=== PATIENT | male | born 1965 | race American Indian/Alaskan Native ===

== ENCOUNTER 2019-11-01 13:04 | Inpatient (IN) | payer OTHER ==
[2019-11-01] MEDS ORDERED: SODIUM CHLORIDE 0.9% 1000 ML 1,000 ML ONE (14:53)
[2019-11-01] MEDS ORDERED: SODIUM CHLORIDE 0.9% 1000 ML 1,000 ML IV ONE ×2 (14:53)
[2019-11-01] MEDS ORDERED: ONDANSETRON 4 MG/2 ML INJ ONE (14:53)
[2019-11-01] MEDS ORDERED: ONDANSETRON 4 MG/2 ML INJ IV ONE (14:53)
--- NOTE | 2019-11-01 15:17 | Emergency Department Report ---
HPI - General Chief Complaint: Dizziness Time Seen by Provider: 11/01/19 14:40 - HPI HPI: Room 25 The patient is a 54-year-old male present with a chief complaint of chills and weakness. The patient states his symptoms began 10/28/2019 with chills. Patient states he began to feel dizzy and weak. Patient states whenever he tried to drink something became nauseous but did not vomit. Patient states she has had "many diarrhea." Patient states she is had a sore throat for the past day or 2. Patient denies rhinorrhea or cough. Patient denies any other forms of pain. Patient admits to subjective fever. Patient denies any known sick contacts ED Past Medical Hx - Past Medical History Previous Medical History?: Yes Hx Hypertension: Yes Hx Diabetes: Yes Hx GERD: Yes - Surgical History Past Surgical History?: No - Family History Family history: no significant - Social History Smoking Status: Former Smoker (None x4 years) Substance Use Type: Alcohol (Occasional) - Medications Home Medications: Home Medications Medication Instructions Recorded Confirmed Last Taken Type Benzonatate [Tessalon Perles] 100 mg PO Q8HR PRN #30 capsule 12/14/16 Unknown Rx Diphenhydra/Phenyleph/Acetamin 1 pack PO PRN PRN 12/14/16 12/14/16 12/13/16 History [Theraflu Nt Severe Cld-Cgh Pkt] Fluticasone [Flonase] 1 spray NS QDAY #1 bottle 12/14/16 Unknown Rx Ketorolac [Toradol] 10 mg PO Q6H PRN #20 tablet 12/14/16 Unknown Rx guaiFENesin DM [Robitussin Dm] 2 tbsp PO Q4-6H PRN 12/14/16 12/14/16 12/13/16 History amLODIPine 5 mg PO DAILY #30 tab 12/16/16 Unknown Rx levoFLOXacin [Levaquin TAB] 500 mg PO QDAY #7 tablet 12/16/16 Unknown Rx ED Review of Systems ROS: Stated complaint: WEAK/DIZZY Other details as noted in HPI Constitutional: chills, fever (Subjective), weakness Eyes: denies: eye pain ENT: denies: other (No rhinorrhea) Respiratory: denies: cough Cardiovascular: denies: chest pain Endocrine: no symptoms reported Gastrointestinal: nausea, diarrhea. denies: abdominal pain, vomiting Genitourinary: denies: dysuria Musculoskeletal: denies: back pain Neurological: denies: headache Physical Exam - Physical Exam Vital Signs: Vital Signs 11/01/19 13:04 Temperature 100.1 F H Pulse Rate 126 H Respiratory 20 Rate Blood Pressure 131/76 [Right] O2 Sat by Pulse 89 Oximetry Physical Exam: GENERAL: The patient is well-developed well-nourished male lying on stretcher not appearing to be in acute distress. [] HEENT: Normocephalic. Atraumatic. Extraocular motions are intact. Patient has dry appearing lips NECK: Supple. Trachea midline CHEST/LUNGS: Clear to auscultation. There is no respiratory distress noted. HEART/CARDIOVASCULAR: Regular. There is tachycardia. There is no gallop rub or murmur. ABDOMEN: Abdomen is soft, nontender. Patient has normal bowel sounds. There is no abdominal distention. SKIN: There is no rash. There is no edema. There is no diaphoresis. NEURO: The patient is awake, alert, and oriented. The patient is cooperative. The patient has normal speech MUSCULOSKELETAL: There is no evidence of acute injury. ED Course Vital Signs 11/01/19 13:04 Temperature 100.1 F H Pulse Rate 126 H Respiratory 20 Rate Blood Pressure 131/76 [Right] O2 Sat by Pulse 89 Oximetry - Reevaluation(s) Reevaluation #1: 11/01/19 17:05 Patient states he feels better however SPO2 70% on room air. ABG ordered. Patient will be placed on supplemental O2. Chest x-ray ordered ED Medical Decision Making - Lab Data Result diagrams: 11/01/19 15:55 11/01/19 15:55 Laboratory Tests 11/01/19 11/01/19 11/01/19 15:55 15:55 15:55 WBC 7.2 RBC 4.99 Hgb 15.4 H Hct 45.6 MCV 91 MCH 31 MCHC 34 RDW 13.1 L Plt Count 123 L Lymph % (Auto) 10.1 L [place] % (Auto) 6.3 Eos % (Auto) 0.0 Baso % (Auto) 0.2 Lymph # 0.7 L [place] # 0.5 Eos # 0.0 Baso # 0.0 Seg Neutrophils % 83.4 H Seg Neutrophils # 6.0 PT 13.6 INR 1.03 APTT 24.2 ABG pH ABG pCO2 ABG pO2 ABG HCO3 ABG O2 Saturation ABG O2 Content ABG Base Excess ABG Hemoglobin ABG Carboxyhemoglobin ABG Methemoglobin Oxyhemoglobin FiO2 Sodium 131 L Potassium 4.5 Chloride 92.7 L Carbon Dioxide 19 L Anion Gap 24 BUN 25 H Creatinine 1.0 Estimated GFR > 60 BUN/Creatinine Ratio 25 Glucose 414 H Calcium 8.6 Total Bilirubin 0.70 AST 40 ALT 21 Alkaline Phosphatase 90 Total Creatine Kinase 161 CK-MB (CK-2) < 1.0 CK-MB (CK-2) Rel Index 0.6 Total Protein 7.9 Albumin 3.6 L Albumin/Globulin Ratio 0.8 Lipase TSH Free T4 Urine Color Urine Turbidity Urine pH Ur Specific [place] Urine Protein Urine Glucose (UA) Urine Ketones Urine Blood Urine Nitrite Ur Reducing Substances Urine Bilirubin Urine Ictotest Urine Urobilinogen Ur Leukocyte Esterase Urine WBC (Auto) Urine RBC (Auto) Urine Mucus Influenza A (Rapid) Influenza B (Rapid) 11/01/19 11/01/19 11/01/19 15:55 15:55 17:02 WBC RBC Hgb Hct MCV MCH MCHC RDW Plt Count Lymph % (Auto) [place] % (Auto) Eos % (Auto) Baso % (Auto) Lymph # [place] # Eos # Baso # Seg Neutrophils % Seg Neutrophils # PT INR APTT ABG pH ABG pCO2 ABG pO2 ABG HCO3 ABG O2 Saturation ABG O2 Content ABG Base Excess ABG Hemoglobin ABG Carboxyhemoglobin ABG Methemoglobin Oxyhemoglobin FiO2 Sodium Potassium Chloride Carbon Dioxide Anion Gap BUN Creatinine Estimated GFR BUN/Creatinine Ratio Glucose Calcium Total Bilirubin AST ALT Alkaline Phosphatase Total Creatine Kinase CK-MB (CK-2) CK-MB (CK-2) Rel Index Total Protein Albumin Albumin/Globulin Ratio Lipase 28 TSH 0.736 Free T4 1.18 Urine Color Yellow Urine Turbidity Clear Urine pH 5.0 Ur Specific [place] 1.027 Urine Protein 30 mg/dl Urine Glucose (UA) >=500 Urine Ketones 20 Urine Blood Neg Urine Nitrite Neg Ur Reducing Substances Not Reportable Urine Bilirubin Neg Urine Ictotest Not Reportable Urine Urobilinogen < 2.0 Ur Leukocyte Esterase Neg Urine WBC (Auto) 1.0 Urine RBC (Auto) 3.0 Urine Mucus Few Influenza A (Rapid) Influenza B (Rapid) 11/01/19 11/01/19 17:23 17:25 WBC RBC Hgb Hct MCV MCH MCHC RDW Plt Count Lymph % (Auto) [place] % (Auto) Eos % (Auto) Baso % (Auto) Lymph # [place] # Eos # Baso # Seg Neutrophils % Seg Neutrophils # PT INR APTT ABG pH 7.397 ABG pCO2 35.3 ABG pO2 47.1 L ABG HCO3 21.3 ABG O2 Saturation 82.3 L ABG O2 Content 17.6 ABG Base Excess -2.8 L ABG Hemoglobin 15.7 ABG Carboxyhemoglobin 2.1 ABG Methemoglobin 0.8 Oxyhemoglobin 79.9 L FiO2 21 Sodium Potassium Chloride Carbon Dioxide Anion Gap BUN Creatinine Estimated GFR BUN/Creatinine Ratio Glucose Calcium Total Bilirubin AST ALT Alkaline Phosphatase Total Creatine Kinase CK-MB (CK-2) CK-MB (CK-2) Rel Index Total Protein Albumin Albumin/Globulin Ratio Lipase TSH Free T4 Urine Color Urine Turbidity Urine pH Ur Specific [place] Urine Protein Urine Glucose (UA) Urine Ketones Urine Blood Urine Nitrite Ur Reducing Substances Urine Bilirubin Urine Ictotest Urine Urobilinogen Ur Leukocyte Esterase Urine WBC (Auto) Urine RBC (Auto) Urine Mucus Influenza A (Rapid) Negative Influenza B (Rapid) Negative - EKG Data -: EKG Interpreted by Me EKG shows normal: sinus rhythm Rate: tachycardia (119 bpm) - EKG Data When compared to previous EKG there are: previous EKG unavailable Interpretation: other (No ischemic changes seen) - Radiology Data Radiology results: report reviewed (Chest x-ray), image reviewed (Chest x-ray) interpreted by me: Chest [id number] hazy appearance, atelectasis. No pneumothorax Findings [address] [address] XRay Report Signed Patient: OMKAR VIVAR MR#: [id number] : 1965 Acct:[id number] Age/Sex: 54 / M ADM Date: 11/01/19 Loc: ED Attending Dr: Ordering Physician: LE ESCOBAR MD Date of Service: 11/01/19 Procedure(s): XR chest 1V ap Accession Number(s): [id number] cc: LE ESCOBAR MD Fluoro Time In Minutes: CHEST 1 VIEW INDICATION: Hypoxia COMPARISON: 12/14/2016 FINDINGS: Support devices: None Heart: Normal and unchanged Lungs/Pleura: There appears to be slight pleural scarring in the right midlung laterally, and mild bibasilar parenchymal densities are most likely atelectasis. I see no convincing evidence of acute disease. The large right perihilar mass density on the previous exam is no longer apparent. IMPRESSION: 1. Chronic appearing changes on the right, with mild bibasilar atelectasis, but no definite acute disease. Signer Name: John Elliott MD Signed: 11/01/2019 5:48 PM Workstation Name: [id number] Transcribed By: TM Dictated By: John Elliott MD Electronically Authenticated By: John Elliott MD Signed Date/Time: 11/01/191747 DD/ 43 TD/TT: - Medical Decision Making Covid 19 PUI form submitted - Differential Diagnosis Gastroenteritis, pancreatitis, dehydration, pharyngitis Critical care attestation.: If time is entered above; I have spent that time in minutes in the direct care of this critically ill patient, excluding procedure time. ED Disposition Clinical Impression: Pneumonia, Tachycardia, Dehydration Disposition: DC-09 OP ADMIT IP TO THIS HOSP Is pt being admited?: Yes Does the pt Need Aspirin: No Condition: Stable Instructions: Bacterial Pneumonia (ED) Time of Disposition: 18:07 (Hospitalist paged (Dr Spear))
[2019-11-01] MEDS ORDERED: ACETAMINOPHEN 500 MG TAB PO ONE (15:22)
[2019-11-01 16:25] LABS: Basophils % (Auto) 0.2 % (0.0-1.8); Hematocrit 45.6 % (35.5-45.6); Hemoglobin 15.4 gm/dl (11.8-15.2); Lymphocytes # (Auto) 0.7 K/mm3 (1.2-5.4); Lymphocytes % (Auto) 10.1 % (13.4-35.0); Mean Corpuscular HGB Conc 34 % (32-34); Mean Corpuscular Volume 91 fl (84-94); Monocytes # (Auto) 0.5 K/mm3 (0.0-0.8); Monocytes % (Auto) 6.3 % (0.0-7.3); Platelet Count 123 K/mm3 (140-440); Red Blood Count 4.99 M/mm3 (3.65-5.03); Red Cell Distribution Width 13.1 % (13.2-15.2)
[2019-11-01 16:36] LABS: INR 1.03 (0.87-1.13); Partial Thromboplastin Time 24.2 Sec. (24.2-36.6)
[2019-11-01 16:37] LABS: Alanine Aminotransferase 21 units/L (7-56); Albumin 3.6 g/dL (3.9-5); BUN/Creatinine Ratio 25; Blood Urea Nitrogen 25 mg/dL (9-20); Calcium 8.6 mg/dL (8.4-10.2); Hemolysis Index 5
[2019-11-01 16:46] LABS: Creatine Kinase MB < 1.0 ng/mL (0.0-4.0)
[2019-11-01 16:54] LABS: Free T4 (Free Thyroxine) 1.18 ng/dL (0.76-1.46)
[2019-11-01 17:14] LABS: Mucus,Urine FEW /HPF
[2019-11-01 17:21] LABS: Bilirubin,Urine NEG (Negative); Blood,Urine NEG (Negative); Color,Urine Yellow (Yellow); Urobilinogen,Urine < 2.0 mg/dL (<2.0)
[2019-11-01 17:52] LABS: ABG Base Excess -2.8 mmol/L (-2.0-3.0); ABG HCO3 21.3 mmol/L (20.0-26.0); ABG Methemoglobin 0.8 % (0.0-1.5); ABG Oxygen Saturation 82.3 % (95.0-99.0); ABG PCO2 35.3 mm Hg; ABG PH 7.397 pH Units (7.350-7.450); ABG PO2 47.1 mm Hg (80.0-90.0)
--- NOTE | 2019-11-01 17:53 | XRay Report ---
CHEST 1 VIEW INDICATION: Hypoxia COMPARISON: 12/14/2016 FINDINGS: Support devices: None Heart: Normal and unchanged Lungs/Pleura: There appears to be slight pleural scarring in the right midlung laterally, and mild bi basilar parenchymal densities are most likely atelectasis. I see no convincing evidence of acute dise ase. The large right perihilar mass density on the previous exam is no longer apparent. IMPRESSION: 1. Chronic appearing changes on the right, with mild bibasilar atelectasis, but no definite acute dis ease. Signer Name: John Elliott MD Signed: 11/01/2019 5:48 PM Workstation Name: [id number]
[2019-11-01] MEDS ORDERED: cefTRIAXone/NS 1 GM/50 ML 1 GM/50 ML BAG IV ONE (17:58)
[2019-11-01] MEDS ORDERED: AZITHROMYCIN 500 MG in SODIUM CHLORIDE 0.9% 250ML 250 ML IV ONE (18:15)
[2019-11-01] MEDS ORDERED: PHENOL 1.4% 177 ML BOTTLE MM PRN (23:05)
--- NOTE | 2019-11-01 23:15 | History and Physical Report ---
History of Present Illness Date of admission: 11/01/19 18:09 History of present illness: 54-year-old man with a history of hypertension, diabetes, GERD comes emergency room for evaluation. Stated that over the last 4 days he has been experiencing nausea, diarrhea. States he does not have the diarrhea every day, unable to quantify how many number of stools he has per day. Complains of generalized weakness, chills. No cough, recent travel or sick contacts. In the emergency room he was found to be hypoxic with 72% on room air. Patient will be admitted for further evaluation of SIRS, possible coronavirus infection Review Of Systems: Constitutional: no weight loss, Ears, eyes, nose, mouth and throat: no nasal congestion, no nasal discharge, no sinus pressure, blurry vision, diplopia Neck: No neck pain or rigidity. Cardiovascular: No palpitations, chest pain Respiratory: No shortness of breath, cough Gastrointestinal: No hematochezia Genitourinary : no dysuria, frequency Musculoskeletal: no muscle ache , joint pain Integumentary: no rash, no pruritis Neurological: no parathesias, focal weakness Endocrine: no cold or heat intolerance, no polyuria or polydipsia Hematologic/Lymphatic: no easy bruising, no easy bleeding, no gland swelling Allergic/Immunologic: no urticaria, no angioedema. PAST MEDICAL HISTORY: hypertension, diabetes, GERD PAST SURGICAL HISTORY: None SOCIAL HISTORY: Denies alcohol, tobacco, drugs FAMILY HISTORY: Hypertension Medications and Allergies Allergies Allergy/AdvReac Type Severity Reaction Status Date / Time No Known Allergies Allergy Verified 11/01/19 13:30 Home Medications Medication Instructions Recorded Confirmed Last Taken Type amLODIPine 10 mg PO DAILY 11/01/19 11/01/19 Unknown History Active Meds: Active Medications Phenol (Chloraseptic) 1 spray MM PRN PRN PRN Reason: Sore Throat Exam - Physical Exam Narrative exam: Gen. appearance: Patient lying in bed, no apparent distress HEENT: Normocephalic, atraumatic, pupils equally round and reactive to light, extraocular movement intact, and no sclericterus,. No JVD or thyromegaly or nodule,neck supple, no carotid bruit ,mucous membranes moist, no exudate or erythema Heart: S1, S2, regular rate and rhythm Lungs: Clear bilaterally, breathing comfortable Abdomen: Positive bowel sounds, nontender, nondistended, no organomegaly Extremity: no edema, cyanosis, clubbing Skin: No rash, nodules, warm, dry Neuro: Cranial nerves II to XII intact, speech is fluent, moves extremities, sensory intact - Constitutional Vitals: Temp Pulse Resp BP Pulse Ox 98.1 F 114 H 20 135/89 92 11/01/19 20:45 11/01/19 22:22 11/01/19 20:45 11/01/19 21:40 11/01/19 21:40 Results - Labs CBC & Chem 7: 11/02/19 04:58 11/02/19 04:58 Labs: Abnormal lab results 11/01/19 11/01/19 11/01/19 Range/Units 15:55 15:55 17:25 Hgb 15.4 H (11.8-15.2) gm/dl RDW 13.1 L (13.2-15.2) % Plt Count 123 L (140-440) K/mm3 Lymph % (Auto) 10.1 L (13.4-35.0) % Lymph # 0.7 L (1.2-5.4) K/mm3 Seg Neutrophils % 83.4 H (40.0-70.0) % ABG pO2 47.1 L (80.0-90.0) mm Hg ABG O2 Saturation 82.3 L (95.0-99.0) % ABG Base Excess -2.8 L (-2.0-3.0) mmol/L Oxyhemoglobin 79.9 L (95.0-99.0) % Sodium 131 L (137-145) mmol/L Chloride 92.7 L (98-107) mmol/L Carbon Dioxide 19 L (22-30) mmol/L BUN 25 H (9-20) mg/dL Glucose 414 H (75-100) mg/dL Albumin 3.6 L (3.9-5) g/dL - Imaging and Cardiology Chest x-ray: report reviewed Assessment and Plan Assessment sirs, possible coronavirus Start IV fluids, supportive care Status post Rocephin, azithromycin ER, hold further antibiotic Consult infectious disease, follow cultures COVID screen was done, placed on droplet, contact precautions Diarrhea Check stool for culture, C. difficile Hypertension, now normotensive Continue to monitor Diabetes Check fingersticks, start sliding scale Thrombocytopenia, monitor DVT prophylaxis
[2019-11-02] MEDS ORDERED: DEXTROSE 50% IN WATER (25GM) 50 ML SYRINGE IV PRN (00:25)
[2019-11-02] MEDS ORDERED: ONDANSETRON 4 MG/2 ML INJ IV PRN (00:25)
[2019-11-02] MEDS ORDERED: SODIUM CHLORIDE 0.9% 1000 ML 1,000 ML IV SCH ×2 (00:30→01:30)
[2019-11-02] MEDS: ACETAMINOPHEN 325 MG TAB PO PRN ×2 (02:37→23:41)
[2019-11-02 05:30] LABS: Basophils % (Auto) 0.5 % (0.0-1.8); Eosinophils % (Auto) 0.1 % (0.0-4.3); Hematocrit 44.2 % (35.5-45.6); Hemoglobin 14.7 gm/dl (11.8-15.2); Lymphocytes # (Auto) 0.8 K/mm3 (1.2-5.4); Lymphocytes % (Auto) 12.5 % (13.4-35.0); Mean Corpuscular HGB Conc 33 % (32-34); Mean Corpuscular Volume 92 fl (84-94); Monocytes # (Auto) 0.4 K/mm3 (0.0-0.8); Monocytes % (Auto) 6.3 % (0.0-7.3); Platelet Count 116 K/mm3 (140-440); Red Cell Distribution Width 13.5 % (13.2-15.2)
[2019-11-02 05:49] LABS: BUN/Creatinine Ratio 22; Blood Urea Nitrogen 20 mg/dL (9-20); Calcium 8.3 mg/dL (8.4-10.2); Hemolysis Index 6
[2019-11-02] MEDS: INSULIN LISPRO 100 UNIT/ML SUB-Q SCH ×4 (09:48→23:41)
--- NOTE | 2019-11-02 11:36 | Progress Note ---
Assessment and Plan Assessment and plan: sirs, possible coronavirus Start IV fluids, supportive care Status post Rocephin, azithromycin ER, hold further antibiotic Consult infectious disease, follow cultures To r/o COVID COVID screen was done, placed on droplet, contact precautions Acute resp failure On supplemental Oxygen Diarrhea Check stool for culture, C. difficile Hypertension, now normotensive Continue to monitor Diabetes Check fingersticks, start sliding scale Thrombocytopenia, monitor DVT prophylaxis Full code status History Interval history: shortness of breath diarrhea Fever Hospitalist Physical - Physical exam Narrative exam: GEN: Not in acute distress, lying in bed,obese HEENT: Normocephalic, atraumatic, Neck: supple, No JVD Lungs: Clear to auscultation, no crackles, heart;S1 and S2 reg, no murmurs, rubs or gallop Abd:soft, non tender, non distended, normal bowel sounds Ext: No edema, no clubbing, no cyanosis, Neuro: Awake, alert, oriented x 3, no focal signs - Constitutional Vitals: Temp Pulse Resp BP Pulse Ox 99.0 F 110 H 21 136/90 90 11/02/19 04:00 11/02/19 06:00 11/02/19 03:50 11/01/19 21:45 11/02/19 08:46 Results - Labs CBC & Chem 7: 11/02/19 04:58 11/02/19 04:58 Labs: Laboratory Last Values WBC 6.6 K/mm3 (4.5-11.0) 11/02/19 04:58 RBC 4.80 M/mm3 (3.65-5.03) 11/02/19 04:58 Hgb 14.7 gm/dl (11.8-15.2) 11/02/19 04:58 Hct 44.2 % (35.5-45.6) 11/02/19 04:58 MCV 92 fl (84-94) 11/02/19 04:58 MCH 31 pg (28-32) 11/02/19 04:58 MCHC 33 % (32-34) 11/02/19 04:58 RDW 13.5 % (13.2-15.2) 11/02/19 04:58 Plt Count 116 K/mm3 (140-440) L 11/02/19 04:58 Lymph % (Auto) 12.5 % (13.4-35.0) L 11/02/19 04:58 [place] % (Auto) 6.3 % (0.0-7.3) 11/02/19 04:58 Eos % (Auto) 0.1 % (0.0-4.3) 11/02/19 04:58 Baso % (Auto) 0.5 % (0.0-1.8) 11/02/19 04:58 Lymph # 0.8 K/mm3 (1.2-5.4) L 11/02/19 04:58 [place] # 0.4 K/mm3 (0.0-0.8) 11/02/19 04:58 Eos # 0.0 K/mm3 (0.0-0.4) 11/02/19 04:58 Baso # 0.0 K/mm3 (0.0-0.1) 11/02/19 04:58 Seg Neutrophils % 80.6 % (40.0-70.0) H 11/02/19 04:58 Seg Neutrophils # 5.3 K/mm3 (1.8-7.7) 11/02/19 04:58 PT 13.6 Sec. (12.2-14.9) 11/01/19 15:55 INR 1.03 (0.87-1.13) 11/01/19 15:55 APTT 24.2 Sec. (24.2-36.6) 11/01/19 15:55 ABG pH 7.397 pH Units (7.350-7.450) 11/01/19 17:25 ABG pCO2 35.3 mm Hg 11/01/19 17:25 ABG pO2 47.1 mm Hg (80.0-90.0) L 11/01/19 17:25 ABG HCO3 21.3 mmol/L (20.0-26.0) 11/01/19 17:25 ABG O2 Saturation 82.3 % (95.0-99.0) L 11/01/19 17:25 ABG O2 Content 17.6 (0.0-44) 11/01/19 17:25 ABG Base Excess -2.8 mmol/L (-2.0-3.0) L 11/01/19 17:25 ABG Hemoglobin 15.7 gm/dl (14.0-18.0) 11/01/19 17:25 ABG Carboxyhemoglobin 2.1 % (0.0-5.0) 11/01/19 17:25 ABG Methemoglobin 0.8 % (0.0-1.5) 11/01/19 17:25 Oxyhemoglobin 79.9 % (95.0-99.0) L 11/01/19 17:25 FiO2 21 % 11/01/19 17:25 Sodium 137 mmol/L (137-145) 11/02/19 04:58 Potassium 4.1 mmol/L (3.6-5.0) 11/02/19 04:58 Chloride 97.9 mmol/L (98-107) L 11/02/19 04:58 Carbon Dioxide 23 mmol/L (22-30) 11/02/19 04:58 Anion Gap 20 mmol/L 11/02/19 04:58 BUN 20 mg/dL (9-20) 11/02/19 04:58 Creatinine 0.9 mg/dL (0.8-1.5) 11/02/19 04:58 Estimated GFR > 60 ml/min 11/02/19 04:58 BUN/Creatinine Ratio 22 % 11/02/19 04:58 Glucose 313 mg/dL (75-100) H 11/02/19 04:58 Calcium 8.3 mg/dL (8.4-10.2) L 11/02/19 04:58 Total Bilirubin 0.70 mg/dL (0.1-1.2) 11/01/19 15:55 AST 40 units/L (5-40) 11/01/19 15:55 ALT 21 units/L (7-56) 11/01/19 15:55 Alkaline Phosphatase 90 units/L (35-129) 11/01/19 15:55 Total Creatine Kinase 161 units/L (55-170) 11/01/19 15:55 CK-MB (CK-2) < 1.0 ng/mL (0.0-4.0) 11/01/19 15:55 CK-MB (CK-2) Rel Index 0.6 (0-4) 11/01/19 15:55 Total Protein 7.9 g/dL (6.3-8.2) 11/01/19 15:55 Albumin 3.6 g/dL (3.9-5) L 11/01/19 15:55 Albumin/Globulin Ratio 0.8 % 11/01/19 15:55 Lipase 28 units/L (13-60) 11/01/19 15:55 TSH 0.736 mlU/mL (0.270-4.200) 11/01/19 15:55 Free T4 1.18 ng/dL (0.76-1.46) 11/01/19 15:55 Urine Color Yellow (Yellow) 11/01/19 17:02 Urine Turbidity Clear (Clear) 11/01/19 17:02 Urine pH 5.0 (5.0-7.0) 11/01/19 17:02 Ur Specific [place] 1.027 (1.003-1.030) 11/01/19 17:02 Urine Protein 30 mg/dl mg/dL (Negative) 11/01/19 17:02 Urine Glucose (UA) >=500 mg/dL (Negative) 11/01/19 17:02 Urine Ketones 20 mg/dL (Negative) 11/01/19 17:02 Urine Blood Neg (Negative) 11/01/19 17:02 Urine Nitrite Neg (Negative) 11/01/19 17:02 Ur Reducing Substances Not Reportable 11/01/19 17:02 Urine Bilirubin Neg (Negative) 11/01/19 17:02 Urine Ictotest Not Reportable 11/01/19 17:02 Urine Urobilinogen < 2.0 mg/dL (<2.0) 11/01/19 17:02 Ur Leukocyte Esterase Neg (Negative) 11/01/19 17:02 Urine WBC (Auto) 1.0 /HPF (0.0-6.0) 11/01/19 17:02 Urine RBC (Auto) 3.0 /HPF (0.0-6.0) 11/01/19 17:02 Urine Mucus Few /HPF 11/01/19 17:02 Influenza A (Rapid) Negative (Negative) 11/01/19 17:23 Influenza B (Rapid) Negative (Negative) 11/01/19 17:23 Microbiology: Microbiology 11/01/19 18:26 Peripheral/Venous Blood Culture - Preliminary Culture in Progress 11/01/19 18:26 Peripheral/Venous Blood Culture - Preliminary Culture in Progress B[place]/IV: Voiding Method Urinal IV Catheter Type [Left Hand] INT / Saline Lock Active Medications - Current Medications Current Medications: Generic Name Dose Route Start Last Admin Trade Name Freq PRN Reason Stop Dose Admin Acetaminophen 650 mg 11/02/19 00:25 11/02/19 02:37 Tylenol PO 650 mg Q4H PRN Administration Pain MILD(1-3)/Fever >100.5/CARDENAS Dextrose 0 ml 11/02/19 00:25 D50w (25gm) Syringe IV Q30MIN PRN Hypoglycemia Protocol Sodium Chloride 1,000 mls @ 75 mls/hr 11/02/19 00:30 11/02/19 02:37 Nacl 0.9% 1000 Ml IV 75 mls/hr DIRECT DUTCH Administration Insulin Human Lispro 0 unit 11/02/19 07:30 11/02/19 09:48 Humalog SUB-Q Not Given ACHS DUTCH Protocol Ondansetron HCl 4 mg 11/02/19 00:25 Zofran IV Q8H PRN Nausea And Vomiting Phenol 1 spray 11/01/19 23:05 11/02/19 02:37 Chloraseptic MM 1 spray PRN PRN Administration Sore Throat Sodium Chloride 10 ml 11/02/19 10:00 11/02/19 09:48 Sodium Chloride Flush Syringe 10 Ml IV 10 ml BID DUTCH Administration Sodium Chloride 10 ml 11/02/19 00:25 Sodium Chloride Flush Syringe 10 Ml IV PRN PRN LINE FLUSH
--- NOTE | 2019-11-02 16:54 | Consultation ---
History of Present Illness - Reason for Consult Consult date: 11/02/19 - History of Present Illness 54-year-old man past medical history of hypertension, diabetes, GERD admitted to the hospital with complaints of nausea and diarrhea. He notes the symptoms began approximately 4 days prior to admission. He also complains of generalized weakness and chills. He was found to be hypoxic on presentation to the hospital and was admitted to the IMCU. He denies shortness of breath or cough. He was admitted as a concern for COVID-19. Afebrile with a normal white count and a lymphopenia. Currently receiving ceftriaxone and azithromycin. Blood cultures are currently pending. Imaging personally reviewed: Chest x-ray: Mild bibasilar atelectasis. Review of Systems: Bold if positive, otherwise negative General: fevers, chills, rigors HEENT: visual disturbance, diplopia, eye pain Respiratory: cough, sputum, hemoptysis, shortness of breath Cardiovascular: chest pain, syncope Gastrointestinal: nausea, vomiting, diarrhea, abdominal pain Genitourinary: dysuria, hematuria, flank pain Musculoskeletal: neck pain, back pain, joint pain, edema Neurologic: headaches, seizures Hematologic: easy bruising or bleeding Endocrine: night sweats, acute weight loss Skin: rash, jaundice, redness Psychiatric: suicidal, homicidal ideation Past History Past Medical History: diabetes Social history: lives with family Family history: no significant family history Medications and Allergies Allergies Allergy/AdvReac Type Severity Reaction Status Date / Time No Known Allergies Allergy Verified 11/01/19 13:30 Home Medications Medication Instructions Recorded Confirmed Last Taken Type amLODIPine 10 mg PO DAILY 11/01/19 11/01/19 Unknown History Active Meds: Active Medications Acetaminophen (Tylenol) 650 mg PO Q4H PRN PRN Reason: Pain MILD(1-3)/Fever >100.5/CARDENAS Last Admin: 11/02/19 02:37 Dose: 650 mg Documented by: Dextrose (D50w (25gm) Syringe) 0 ml IV Q30MIN PRN; Protocol PRN Reason: Hypoglycemia Sodium Chloride (Nacl 0.9% 1000 Ml) 1,000 mls @ 75 mls/hr IV DIRECT DUTCH Last Admin: 11/02/19 02:37 Dose: 75 mls/hr Documented by: Insulin Human Lispro (Humalog) 0 unit SUB-Q ACHS DUTCH; Protocol Last Admin: 11/02/19 12:07 Dose: Not Given Documented by: Ondansetron HCl (Zofran) 4 mg IV Q8H PRN PRN Reason: Nausea And Vomiting Phenol (Chloraseptic) 1 spray MM PRN PRN PRN Reason: Sore Throat Last Admin: 11/02/19 02:37 Dose: 1 spray Documented by: Sodium Chloride (Sodium Chloride Flush Syringe 10 Ml) 10 ml IV BID [facility] Last Admin: 11/02/19 09:48 Dose: 10 ml Documented by: Sodium Chloride (Sodium Chloride Flush Syringe 10 Ml) 10 ml IV PRN PRN PRN Reason: LINE FLUSH Physical Examination - Physical Exam Narrative exam: Physical Exam: Constitutional: Alert, cooperative. No acute distress Head, Ears, Nose: Normocephalic, atraumatic. External ears, nose normal Eyes: Conjunctivae/corneas clear. No icterus. No ptosis. Neck: Supple, no meningeal signs Oral: dentition fair, no thrush Cardiovascular: S1, S2 normal. Respiratory: Bilaterally diminished breath sounds GI: Soft, non-tender; bowel sounds normal. No peritoneal signs. Musculoskeletal: No pedal edema, no cyanosis. Skin: No rash or abscess Hem/Lymphatic: No palpable cervical or supraclavicular nodes. No lymphangitis Psych: Mood ok. Affect normal Neurological: Awake, alert, oriented. No gross abnormality - Constitutional Vitals: Vital Signs Temp Pulse Resp BP Pulse Ox 99.0 F 114 H 22 157/85 88 11/02/19 04:00 11/02/19 15:50 11/02/19 15:00 11/02/19 15:50 11/02/19 15:50 Temperature -Last 24 Hours Temperature 99.0 F Temperature 98.9 F Temperature 98.1 F Temperature 98.9 F Results - Labs CBC & Chem 7: 11/02/19 04:58 11/02/19 04:58 Labs: Abnormal lab results 11/01/19 11/02/19 11/02/19 Range/Units 17:25 04:58 04:58 Plt Count 116 L (140-440) K/mm3 Lymph % (Auto) 12.5 L (13.4-35.0) % Lymph # 0.8 L (1.2-5.4) K/mm3 Seg Neutrophils % 80.6 H (40.0-70.0) % ABG pO2 47.1 L (80.0-90.0) mm Hg ABG O2 Saturation 82.3 L (95.0-99.0) % ABG Base Excess -2.8 L (-2.0-3.0) mmol/L Oxyhemoglobin 79.9 L (95.0-99.0) % Chloride 97.9 L (98-107) mmol/L Glucose 313 H (75-100) mg/dL Calcium 8.3 L (8.4-10.2) mg/dL Assessment and Plan Cultures: Blood culture 11/01/2019 no growth to date A/P: 54-year-old man past medical history of hypertension, diabetes, GERD admitted with nausea and vomiting. #COVID-19 rule out: Patient with nausea and vomiting, sometimes COVID-19 can present with an abdominal prodrome prior to respiratory symptoms. He was hypoxic on admission. He had a normal white count with a lymphopenia in support of this possible diagnosis. Department of Health form has already been filled out, follow-up testing from them. #Diarrhea: Patient reports it was intermittent and not that frequent. Doubt C. difficile, however already ordered and collected. Follow-up results. #Hypoxia: No obvious pneumonia seen on x-ray, however may be lagging behind. Continue empiric ceftriaxone and azithromycin for now. Order procalcitonin for morning labs. #Diabetes: tight glycemic control for best outcomes. Recs: -Continue contact and droplet precautions. -Follow-up with Department of Health testing for COVID-19 -Continue empiric antibiotics with ceftriaxone and azithromycin -Follow-up C. difficile previously ordered -Ordered procalcitonin for morning labs. Thank you for the consult, we will continue to follow. Martir Malloy MD [facility] ([facility] M: [phone] O: [phone] F: [phone]
[2019-11-03] MEDS: cefTRIAXone/NS 2 GM/100 ML 2 GM/100 ML BAG IV SCH (11:00)
[2019-11-03] MEDS: AZITHROMYCIN 500 MG in SODIUM CHLORIDE 0.9% 250ML 250 ML IV SCH (11:45)
[2019-11-03] MEDS: INSULIN LISPRO 100 UNIT/ML SUB-Q SCH ×5 (11:45→23:30)
--- NOTE | 2019-11-03 13:01 | Progress Note ---
Assessment and Plan Assessment and plan: sirs, possible coronavirus Start IV fluids, supportive care Status post Rocephin, azithromycin ER, hold further antibiotic Consult infectious disease, follow cultures To r/o COVID COVID screen was done, placed on droplet, contact precautions Acute resp failure On supplemental Oxygen now on high flow Oxygen Bilateral pneumonia To r/o Covid 19 PUI Diarrhea Check stool for culture, C. difficile Ordered, Hypertension, now normotensive Continue to monitor Diabetes Check fingersticks, start sliding scale Thrombocytopenia, monitor DVT prophylaxis Full code status 11/03/19 patient with bilateral pneumonia. to r/o COVID. Consulted pulm for worsening resp failure, on high flow Oxygen History Interval history: shortness of breath Hypoxia worsening still having Fever Hospitalist Physical - Physical exam Narrative exam: GEN: Not in acute distress, lying in bed,obese HEENT: Normocephalic, atraumatic, Neck: supple, No JVD Lungs: bilateral crackles, heart;S1 and S2 reg, no murmurs, rubs or gallop Abd:soft, non tender, non distended, normal bowel sounds Ext: No edema, no clubbing, no cyanosis, Neuro: Awake, alert, oriented x 3, no focal signs - Constitutional Vitals: Temp Pulse Resp BP Pulse Ox 98.2 F 102 H 24 137/85 92 11/03/19 03:38 11/03/19 06:00 11/03/19 06:00 11/03/19 06:00 11/03/19 08:40 Results - Labs CBC & Chem 7: 11/04/19 04:50 11/04/19 04:50 Labs: Laboratory Last Values WBC 6.6 K/mm3 (4.5-11.0) 11/02/19 04:58 RBC 4.80 M/mm3 (3.65-5.03) 11/02/19 04:58 Hgb 14.7 gm/dl (11.8-15.2) 11/02/19 04:58 Hct 44.2 % (35.5-45.6) 11/02/19 04:58 MCV 92 fl (84-94) 11/02/19 04:58 MCH 31 pg (28-32) 11/02/19 04:58 MCHC 33 % (32-34) 11/02/19 04:58 RDW 13.5 % (13.2-15.2) 11/02/19 04:58 Plt Count 116 K/mm3 (140-440) L 11/02/19 04:58 Lymph % (Auto) 12.5 % (13.4-35.0) L 11/02/19 04:58 [place] % (Auto) 6.3 % (0.0-7.3) 11/02/19 04:58 Eos % (Auto) 0.1 % (0.0-4.3) 11/02/19 04:58 Baso % (Auto) 0.5 % (0.0-1.8) 11/02/19 04:58 Lymph # 0.8 K/mm3 (1.2-5.4) L 11/02/19 04:58 [place] # 0.4 K/mm3 (0.0-0.8) 11/02/19 04:58 Eos # 0.0 K/mm3 (0.0-0.4) 11/02/19 04:58 Baso # 0.0 K/mm3 (0.0-0.1) 11/02/19 04:58 Seg Neutrophils % 80.6 % (40.0-70.0) H 11/02/19 04:58 Seg Neutrophils # 5.3 K/mm3 (1.8-7.7) 11/02/19 04:58 PT 13.6 Sec. (12.2-14.9) 11/01/19 15:55 INR 1.03 (0.87-1.13) 11/01/19 15:55 APTT 24.2 Sec. (24.2-36.6) 11/01/19 15:55 ABG pH 7.397 pH Units (7.350-7.450) 11/01/19 17:25 ABG pCO2 35.3 mm Hg 11/01/19 17:25 ABG pO2 47.1 mm Hg (80.0-90.0) L 11/01/19 17:25 ABG HCO3 21.3 mmol/L (20.0-26.0) 11/01/19 17:25 ABG O2 Saturation 82.3 % (95.0-99.0) L 11/01/19 17:25 ABG O2 Content 17.6 (0.0-44) 11/01/19 17:25 ABG Base Excess -2.8 mmol/L (-2.0-3.0) L 11/01/19 17:25 ABG Hemoglobin 15.7 gm/dl (14.0-18.0) 11/01/19 17:25 ABG Carboxyhemoglobin 2.1 % (0.0-5.0) 11/01/19 17:25 ABG Methemoglobin 0.8 % (0.0-1.5) 11/01/19 17:25 Oxyhemoglobin 79.9 % (95.0-99.0) L 11/01/19 17:25 FiO2 21 % 11/01/19 17:25 Sodium 137 mmol/L (137-145) 11/02/19 04:58 Potassium 4.1 mmol/L (3.6-5.0) 11/02/19 04:58 Chloride 97.9 mmol/L (98-107) L 11/02/19 04:58 Carbon Dioxide 23 mmol/L (22-30) 11/02/19 04:58 Anion Gap 20 mmol/L 11/02/19 04:58 BUN 20 mg/dL (9-20) 11/02/19 04:58 Creatinine 0.9 mg/dL (0.8-1.5) 11/02/19 04:58 Estimated GFR > 60 ml/min 11/02/19 04:58 BUN/Creatinine Ratio 22 % 11/02/19 04:58 Glucose 313 mg/dL (75-100) H 11/02/19 04:58 POC Glucose 251 (70-105) H 11/03/19 11:21 Calcium 8.3 mg/dL (8.4-10.2) L 11/02/19 04:58 Total Bilirubin 0.70 mg/dL (0.1-1.2) 11/01/19 15:55 AST 40 units/L (5-40) 11/01/19 15:55 ALT 21 units/L (7-56) 11/01/19 15:55 Alkaline Phosphatase 90 units/L (35-129) 11/01/19 15:55 Total Creatine Kinase 161 units/L (55-170) 11/01/19 15:55 CK-MB (CK-2) < 1.0 ng/mL (0.0-4.0) 11/01/19 15:55 CK-MB (CK-2) Rel Index 0.6 (0-4) 11/01/19 15:55 Total Protein 7.9 g/dL (6.3-8.2) 11/01/19 15:55 Albumin 3.6 g/dL (3.9-5) L 11/01/19 15:55 Albumin/Globulin Ratio 0.8 % 11/01/19 15: Lipase 28 units/L (13-60) 11/01/19 15:55 Procalcitonin 0.18 ng/mL (<0.15) 11/03/19 05:33 TSH 0.736 mlU/mL (0.270-4.200) 11/01/19 15:55 Free T4 1.18 ng/dL (0.76-1.46) 11/01/19 15:55 Urine Color Yellow (Yellow) 11/01/19 17:02 Urine Turbidity Clear (Clear) 11/01/19 17:02 Urine pH 5.0 (5.0-7.0) 11/01/19 17:02 Ur Specific [place] 1.027 (1.003-1.030) 11/01/19 17:02 Urine Protein 30 mg/dl mg/dL (Negative) 11/01/19 17:02 Urine Glucose (UA) >=500 mg/dL (Negative) 11/01/19 17:02 Urine Ketones 20 mg/dL (Negative) 11/01/19 17:02 Urine Blood Neg (Negative) 11/01/19 17:02 Urine Nitrite Neg (Negative) 11/01/19 17:02 Ur Reducing Substances Not Reportable 11/01/19 17:02 Urine Bilirubin Neg (Negative) 11/01/19 17:02 Urine Ictotest Not Reportable 11/01/19 17:02 Urine Urobilinogen < 2.0 mg/dL (<2.0) 11/01/19 17:02 Ur Leukocyte Esterase Neg (Negative) 11/01/19 17:02 Urine WBC (Auto) 1.0 /HPF (0.0-6.0) 11/01/19 17:02 Urine RBC (Auto) 3.0 /HPF (0.0-6.0) 11/01/19 17:02 Urine Mucus Few /HPF 11/01/19 17:02 Influenza A (Rapid) Negative (Negative) 11/01/19 17:23 Influenza B (Rapid) Negative (Negative) 11/01/19 17:23 Microbiology: Microbiology 11/01/19 18:26 Peripheral/Venous Blood Culture - Preliminary NO GROWTH AFTER 24 HOURS 11/01/19 18:26 Peripheral/Venous Blood Culture - Preliminary NO GROWTH AFTER 24 HOURS [place]/IV: Voiding Method Urinal IV Catheter Type [Left Hand] INT / Saline Lock Active Medications - Current Medications Current Medications: Generic Name Dose Route Start Last Admin Trade Name Freq PRN Reason Stop Dose Admin Acetaminophen 650 mg 11/02/19 00:25 11/02/19 23:41 Tylenol PO 650 mg Q4H PRN Administration Pain MILD(1-3)/Fever >100.5/CARDENAS Dextrose 0 ml 11/02/19 00:25 D50w (25gm) Syringe IV Q30MIN PRN Hypoglycemia Protocol Sodium Chloride 1,000 mls @ 75 mls/hr 11/02/19 00:30 11/02/19 02:37 Nacl 0.9% 1000 Ml IV 75 mls/hr DIRECT DUTCH Administration Ceftriaxone Sodium 2 gm in 100 mls @ 200 mls/hr 11/03/19 11:00 Rocephin/Ns 2 Gm/100 Ml IV Q24HR DUTCH Protocol Azithromycin 500 mg/ Sodium 250 mls @ 250 mls/hr 11/03/19 11:00 11/03/19 11:45 Chloride IV 250 mls/hr Q24HR DUTCH Administration Protocol Insulin Human Lispro 0 unit 11/02/19 07:30 11/03/19 11:45 Humalog SUB-Q 6 unit ACHS DUTCH Administration Protocol Ondansetron HCl 4 mg 11/02/19 00:25 Zofran IV Q8H PRN Nausea And Vomiting Phenol 1 spray 11/01/19 23:05 11/02/19 02:37 Chloraseptic MM 1 spray PRN PRN Administration Sore Throat Sodium Chloride 10 ml 11/02/19 10:00 11/03/19 11:46 Sodium Chloride Flush Syringe 10 Ml IV 10 ml BID DUTCH Administration Sodium Chloride 10 ml 11/02/19 00:25 Sodium Chloride Flush Syringe 10 Ml IV PRN PRN LINE FLUSH
--- NOTE | 2019-11-03 14:55 | XRay Report ---
CHEST 1 VIEW INDICATION: Shortness of breath, hypoxic. COMPARISON: 11/01/2019 FINDINGS: Support devices: None. Heart: Within normal limits. Lungs/Pleura: Mild bilateral interstitial opacities have developed since yesterday's exam. This could represent congestive changes or bilateral pneumonitis. No consolidation, pleural effusion or pneumot horax. Additional findings: None. IMPRESSION: Bilateral lung infiltrates as described. Signer Name: Ayush Gu Jr, MD Signed: 11/03/2019 2:51 PM Workstation Name: [id number]
[2019-11-03] MEDS ORDERED: FUROSEMIDE 40 MG/4 ML INJ IV ONE (15:22)
--- NOTE | 2019-11-03 18:14 | Progress Note ---
Assessment and Plan Cultures: Blood culture 11/01/2019 no growth to date A/P: 54-year-old man past medical history of hypertension, diabetes, GERD admitted with nausea and vomiting. #COVID-19 rule out: Patient with nausea and vomiting, sometimes COVID-19 can present with an abdominal prodrome prior to respiratory symptoms. He was hypoxic on admission. He had a normal white count with a lymphopenia in support of this possible diagnosis. Department of Health form has already been filled out, follow-up testing from them. #Diarrhea: Patient reports it was intermittent and not that frequent. Doubt C. difficile, however already ordered and collected. Follow-up results. #Hypoxia: No obvious pneumonia seen on x-ray, however may be lagging behind. C ontinue empiric ceftriaxone and azithromycin for now. Order procalcitonin for morning labs. #Diabetes: tight glycemic control for best outcomes. Recs: -Continue contact and droplet precautions. Place in airborn if patient requires intubation. -Follow-up with Department of Health testing for COVID-19 -Continue empiric antibiotics with ceftriaxone and azithromycin -Follow-up C. difficile previously ordered Thank you for the consult, we will continue to follow. Martir Malloy MD [facility] ([facility] M: [phone] O: [phone] F: [phone] Subjective Date of service: 11/03/19 Interval history: Febrile overnight, no other acute complaints at this time Objective - Exam Narrative Exam: Physical Exam: Constitutional: Alert, cooperative. No acute distress Head, Ears, Nose: Normocephalic, atraumatic. External ears, nose normal. Neck: Supple, no meningeal signs Oral: dentition fair, no thrush Cardiovascular: S1, S2 normal. Respiratory: Bilaterally diminished breath sounds GI: Soft, non-tender; bowel sounds normal. No peritoneal signs. Musculoskeletal: No pedal edema, no cyanosis. Skin: No rash or abscess Hem/Lymphatic: No palpable cervical or supraclavicular nodes. No lymphangitis Psych: Mood ok. Affect normal Neurological: Awake, alert, oriented. No gross abnormality - Constitutional Vitals: Vital Signs Temp Pulse Resp BP Pulse Ox 98.5 F 115 H 22 136/91 93 11/03/19 16:00 11/03/19 16:00 11/03/19 16:00 11/03/19 14:00 11/03/19 16:00 Temperature -Last 24 Hours Temperature 98.5 F Temperature 97.6 F Temperature 98.4 F Temperature 98.2 F Temperature 101.3 F Temperature 101.9 F - Labs CBC & Chem 7: 11/02/19 04:58 11/02/19 04:58 Labs: Abnormal lab results 11/02/19 11/03/19 11/03/19 Range/Units 23:46 11:21 16:59 POC Glucose 260 H 251 H 202 H (70-105)
[2019-11-03] MEDS: ACETAMINOPHEN 325 MG TAB PO PRN (22:42)
[2019-11-04] MEDS: INSULIN LISPRO 100 UNIT/ML SUB-Q SCH ×3 (01:59→22:54)
[2019-11-04 05:37] LABS: Hematocrit 41.1 % (35.5-45.6); Hemoglobin 13.7 gm/dl (11.8-15.2); Mean Corpuscular HGB Conc 33 % (32-34); Mean Corpuscular Volume 91 fl (84-94); Platelet Count 152 K/mm3 (140-440)
[2019-11-04 05:51] LABS: BUN/Creatinine Ratio 16; Blood Urea Nitrogen 13 mg/dL (9-20); Calcium 8.4 mg/dL (8.4-10.2); Hemolysis Index 30
[2019-11-04] MEDS: cefTRIAXone/NS 2 GM/100 ML 2 GM/100 ML BAG IV SCH (10:39)
[2019-11-04] MEDS: AZITHROMYCIN 500 MG in SODIUM CHLORIDE 0.9% 250ML 250 ML IV SCH (10:40)
[2019-11-04] MEDS ORDERED: FUROSEMIDE 40 MG/4 ML INJ IV ONE (11:00)
--- NOTE | 2019-11-04 12:22 | Consultation ---
History of Present Illness Consult date: 11/04/19 Requesting physician: ALEXA MACK Reason for consult: hypoxemia History of present illness: 54 y/o male with COPD, last seen by me almost 3 years ago, admitted 3 days ago with hypoxemia. Presenting symptoms were abdominal pain and nausea with diarrhea. On 11/01, one day after arrival spiked at temp to 101. Since admission patient has gone from 4 liters NC to HFNC at 40 and 90%. Work of breathing is easy. Patient appears comfortable. No family present secondary to COVID circumstances. Remainder is negative. Past History Past Medical History: diabetes Social history: lives with family Family history: no significant family history Medications and Allergies Allergies Allergy/AdvReac Type Severity Reaction Status Date / Time No Known Allergies Allergy Verified 11/01/19 13:30 Home Medications Medication Instructions Recorded Confirmed Last Taken Type amLODIPine 10 mg PO DAILY 11/01/19 11/01/19 Unknown History Active Meds: Active Medications Acetaminophen (Tylenol) 650 mg PO Q4H PRN PRN Reason: Pain MILD(1-3)/Fever >100.5/CARDENAS Last Admin: 11/03/19 22:42 Dose: 650 mg Documented by: Dextrose (D50w (25gm) Syringe) 0 ml IV Q30MIN PRN; Protocol PRN Reason: Hypoglycemia Ceftriaxone Sodium (Rocephin/Ns 2 Gm/100 Ml) 2 gm in 100 mls @ 200 mls/hr IV Q24HR DUTCH; Protocol Last Admin: 11/04/19 10:39 Dose: 200 mls/hr Documented by: Azithromycin 500 mg/ Sodium (Chloride) 250 mls @ 250 mls/hr IV Q24HR DUTCH; Protocol Last Admin: 11/04/19 10:40 Dose: 250 mls/hr Documented by: Insulin Human Lispro (Humalog) 0 unit SUB-Q ACHS DUTCH; Protocol Last Admin: 11/04/19 10:38 Dose: 4 unit Documented by: Ondansetron HCl (Zofran) 4 mg IV Q8H PRN PRN Reason: Nausea And Vomiting Phenol (Chloraseptic) 1 spray MM PRN PRN PRN Reason: Sore Throat Last Admin: 11/02/19 02:37 Dose: 1 spray Documented by: Sodium Chloride (Sodium Chloride Flush Syringe 10 Ml) 10 ml IV BID DUTCH Last Admin: 11/03/19 22:43 Dose: 10 ml Documented by: Sodium Chloride (Sodium Chloride Flush Syringe 10 Ml) 10 ml IV PRN PRN PRN Reason: LINE FLUSH Review of Systems All systems: negative Physical Examination Vital signs: Vital Signs Temp Pulse Resp BP Pulse Ox 100.1 F H 126 H 20 131/76 89 11/01/19 13:04 11/01/19 13:04 11/01/19 13:04 11/01/19 13:04 11/01/19 13:04 Results - Laboratory Findings CBC and BMP: 11/04/19 04:50 11/04/19 04:50 ABG ABG pH 7.397 pH Units (7.350-7.450) 11/01/19 17:25 ABG pCO2 35.3 mm Hg 11/01/19 17:25 ABG pO2 47.1 mm Hg (80.0-90.0) L 11/01/19 17:25 ABG O2 Saturation 82.3 % (95.0-99.0) L 11/01/19 17:25 PT/INR, D-dimer PT 13.6 Sec. (12.2-14.9) 11/01/19 15:55 INR 1.03 (0.87-1.13) 11/01/19 15:55 Abnormal lab findings: Abnormal Labs 11/01/19 11/01/19 11/01/19 15:55 15:55 17:25 Hgb 15.4 H RDW 13.1 L Plt Count 123 L Lymph % (Auto) 10.1 L Lymph # 0.7 L Seg Neutrophils % 83.4 H ABG pO2 47.1 L ABG O2 Saturation 82.3 L ABG Base Excess -2.8 L Oxyhemoglobin 79.9 L Sodium 131 L Chloride 92.7 L Carbon Dioxide 19 L BUN 25 H Glucose 414 H POC Glucose Calcium Albumin 3.6 L 11/02/19 11/02/19 11/02/19 04:58 04:58 23:46 Hgb RDW Plt Count 116 L Lymph % (Auto) 12.5 L Lymph # 0.8 L Seg Neutrophils % 80.6 H ABG pO2 ABG O2 Saturation ABG Base Excess Oxyhemoglobin Sodium Chloride 97.9 L Carbon Dioxide BUN Glucose 313 H POC Glucose 260 H Calcium 8.3 L Albumin 11/03/19 11/03/1920 11:21 16:59 23:20 Hgb RDW Plt Count Lymph % (Auto) Lymph # Seg Neutrophils % ABG pO2 ABG O2 Saturation ABG Base Excess Oxyhemoglobin Sodium Chloride Carbon Dioxide BUN Glucose POC Glucose 251 H 202 H 304 H Calcium Albumin 11/04/19 11/04/19 11/04/19 04:50 04:50 08:54 Hgb RDW 13.0 L Plt Count Lymph % (Auto) Lymph # Seg Neutrophils % ABG pO2 ABG O2 Saturation ABG Base Excess Oxyhemoglobin Sodium 134 L Chloride 90.8 L Carbon Dioxide 31 H D BUN Glucose 236 H POC Glucose 230 H Calcium Albumin - Diagnostic Findings Chest x-ray: image reviewed (bilateral alveolar opacities.) Assessment and Plan 54 y/o male with acute hypoxic respiratory failure, now requiring HFNC 1. Stopped IVF's 2. Gave lasix yesterday and will give an additional dose today 3. If oxygen requirement does not improve, will consider elective intubation vs transferring to negative pressure room and using bipap therapy. 4. Patient does carry a diagnosis of COPD. Not currently on any therapy. He has quit smoking. No wheezing right now. Hold on steroids. Guarded prognosis. Will continue to monitor.
[2019-11-04] MEDS: ACETAMINOPHEN 325 MG TAB PO PRN (13:56)
--- NOTE | 2019-11-04 14:36 | Progress Note ---
Assessment and Plan Assessment and plan: sirs, possible coronavirus Start IV fluids, supportive care Status post Rocephin, azithromycin ER, hold further antibiotic Consult infectious disease, follow cultures To r/o COVID COVID screen was done, placed on droplet, contact precautions Acute resp failure On supplemental Oxygen now on high flow Oxygen Bilateral pneumonia To r/o Covid 19 PUI Diarrhea Check stool for culture, C. difficile Ordered, Hypertension, now normotensive Continue to monitor Diabetes Check fingersticks, start sliding scale Thrombocytopenia, monitor DVT prophylaxis Full code status 11/03/19 patient with bilateral pneumonia. to r/o COVID. Consulted pulm for worsening resp failure, on high flow Oxygen 11/04/19 Pattient with bilat pneumonia, PUI to r/o Covid. Now on HFNC at 40 l/min History Interval history: shortness of breath still having Fever Hospitalist Physical - Physical exam Narrative exam: GEN: Not in acute distress, lying in bed,obese HEENT: Normocephalic, atraumatic, Neck: supple, No JVD Lungs: bilateral crackles, heart;S1 and S2 reg, no murmurs, rubs or gallop Abd:soft, non tender, non distended, normal bowel sounds Ext: No edema, no clubbing, no cyanosis, Neuro: Awake, alert, oriented x 3, no focal signs - Constitutional Vitals: Temp Pulse Resp BP Pulse Ox 99.1 F 108 H 111 H 149/93 92 11/04/19 08:00 11/04/19 04:00 11/04/19 13:56 11/04/19 04:00 11/04/19 11:15 Results - Labs CBC & Chem 7: 11/04/19 04:50 11/04/19 04:50 Labs: Laboratory Last Values WBC 7.1 K/mm3 (4.5-11.0) 11/04/19 04:50 RBC 4.50 M/mm3 (3.65-5.03) 11/04/19 04:50 Hgb 13.7 gm/dl (11.8-15.2) 11/04/19 04:50 Hct 41.1 % (35.5-45.6) 11/04/19 04:50 MCV 91 fl (84-94) 11/04/19 04:50 MCH 30 pg (28-32) 11/04/19 04:50 MCHC 33 % (32-34) 11/04/19 04:50 RDW 13.0 % (13.2-15.2) L 11/04/19 04:50 Plt Count 152 K/mm3 (140-440) 11/04/19 04:50 Lymph % (Auto) 12.5 % (13.4-35.0) L 11/02/19 04:58 [place] % (Auto) 6.3 % (0.0-7.3) 11/02/19 04:58 Eos % (Auto) 0.1 % (0.0-4.3) 11/02/19 04:58 Baso % (Auto) 0.5 % (0.0-1.8) 11/02/19 04:58 Lymph # 0.8 K/mm3 (1.2-5.4) L 11/02/19 04:58 [place] # 0.4 K/mm3 (0.0-0.8) 11/02/19 04:58 Eos # 0.0 K/mm3 (0.0-0.4) 11/02/19 04:58 Baso # 0.0 K/mm3 (0.0-0.1) 11/02/19 04:58 Seg Neutrophils % 80.6 % (40.0-70.0) H 11/02/19 04:58 Seg Neutrophils # 5.3 K/mm3 (1.8-7.7) 11/02/19 04:58 PT 13.6 Sec. (12.2-14.9) 11/01/19 15:55 INR 1.03 (0.87-1.13) 11/01/19 15:55 APTT 24.2 Sec. (24.2-36.6) 11/01/19 15:55 ABG pH 7.397 pH Units (7.350-7.450) 11/01/19 17:25 ABG pCO2 35.3 mm Hg 11/01/19 17:25 ABG pO2 47.1 mm Hg (80.0-90.0) L 11/01/19 17:25 ABG HCO3 21.3 mmol/L (20.0-26.0) 11/01/19 17:25 ABG O2 Saturation 82.3 % (95.0-99.0) L 11/01/19 17:25 ABG O2 Content 17.6 (0.0-44) 11/01/19 17:25 ABG Base Excess -2.8 mmol/L (-2.0-3.0) L 11/01/19 17:25 ABG Hemoglobin 15.7 gm/dl (14.0-18.0) 11/01/19 17:25 ABG Carboxyhemoglobin 2.1 % (0.0-5.0) 11/01/19 17:25 ABG Methemoglobin 0.8 % (0.0-1.5) 11/01/19 17:25 Oxyhemoglobin 79.9 % (95.0-99.0) L 11/01/19 17:25 FiO2 21 % 11/01/19 17:25 Sodium 134 mmol/L (137-145) L 11/04/19 04:50 Potassium 3.7 mmol/L (3.6-5.0) 11/04/19 04:50 Chloride 90.8 mmol/L (98-107) L 11/04/19 04:50 Carbon Dioxide 31 mmol/L (22-30) H D 11/04/19 04:50 Anion Gap 16 mmol/L 11/04/19 04:50 BUN 13 mg/dL (9-20) 11/04/19 04:50 Creatinine 0.8 mg/dL (0.8-1.5) 11/04/19 04:50 Estimated GFR > 60 ml/min 11/04/19 04:50 BUN/Creatinine Ratio 16 % 11/04/19 04:50 Glucose 236 mg/dL (75-100) H 11/04/19 04:50 POC Glucose 293 (70-105) H 11/04/19 12:42 Calcium 8.4 mg/dL (8.4-10.2) 11/04/19 04:50 Total Bilirubin 0.70 mg/dL (0.1-1.2) 11/01/19 15:55 AST 40 units/L (5-40) 11/01/19 15:55 ALT 21 units/L (7-56) 11/01/19 15:55 Alkaline Phosphatase 90 units/L (35-129) 11/01/19 15:55 Total Creatine Kinase 161 units/L (55-170) 11/01/19 15:55 CK-MB (CK-2) < 1.0 ng/mL (0.0-4.0) 11/01/19 15:55 CK-MB (CK-2) Rel Index 0.6 (0-4) 11/01/19 15:55 Total Protein 7.9 g/dL (6.3-8.2) 11/01/19 15:55 Albumin 3.6 g/dL (3.9-5) L 11/01/19 15: Albumin/Globulin Ratio 0.8 % 11/01/19 15: Lipase 28 units/L (13-60) 11/01/19 15:55 Procalcitonin 0.18 ng/mL (<0.15) 11/03/19 05:33 TSH 0.736 mlU/mL (0.270-4.200) 11/01/19 15: Free T4 1.18 ng/dL (0.76-1.46) 11/01/19 15:55 Urine Color Yellow (Yellow) 11/01/19 17:02 Urine Turbidity Clear (Clear) 11/01/19 17:02 Urine pH 5.0 (5.0-7.0) 11/01/19 17:02 Ur Specific [place] 1.027 (1.003-1.030) 11/01/19 17:02 Urine Protein 30 mg/dl mg/dL (Negative) 11/01/19 17:02 Urine Glucose (UA) >=500 mg/dL (Negative) 11/01/19 17:02 Urine Ketones 20 mg/dL (Negative) 11/01/19 17:02 Urine Blood Neg (Negative) 11/01/19 17:02 Urine Nitrite Neg (Negative) 11/01/19 17:02 Ur Reducing Substances Not Reportable 11/01/19 17:02 Urine Bilirubin Neg (Negative) 11/01/19 17:02 Urine Ictotest Not Reportable 11/01/19 17:02 Urine Urobilinogen < 2.0 mg/dL (<2.0) 11/01/19 17:02 Ur Leukocyte Esterase Neg (Negative) 11/01/19 17:02 Urine WBC (Auto) 1.0 /HPF (0.0-6.0) 11/01/19 17:02 Urine RBC (Auto) 3.0 /HPF (0.0-6.0) 11/01/19 17:02 Urine Mucus Few /HPF 11/01/19 17:02 Influenza A (Rapid) Negative (Negative) 11/01/19 17:23 Influenza B (Rapid) Negative (Negative) 11/01/19 17:23 Microbiology: Microbiology 11/01/19 18:26 Peripheral/Venous Blood Culture - Preliminary NO GROWTH AFTER 48 HOURS 11/01/19 18:26 Peripheral/Venous Blood Culture - Preliminary NO GROWTH AFTER 48 HOURS Bansal/IV: Voiding Method Urinal IV Catheter Type [Left Hand] INT / Saline Lock Active Medications - Current Medications Current Medications: Generic Name Dose Route Start Last Admin Trade Name Freq PRN Reason Stop Dose Admin Acetaminophen 650 mg 11/02/19 00:25 11/04/19 13:56 Tylenol PO 650 mg Q4H PRN Administration Pain MILD(1-3)/Fever >100.5/CARDENAS Dextrose 0 ml 11/02/19 00:25 D50w (25gm) Syringe IV Q30MIN PRN Hypoglycemia Protocol Ceftriaxone Sodium 2 gm in 100 mls @ 200 mls/hr 11/03/19 11:00 11/04/19 10:39 Rocephin/Ns 2 Gm/100 Ml IV 200 mls/hr Q24HR DUTCH Administration Protocol Azithromycin 500 mg/ Sodium 250 mls @ 250 mls/hr 11/03/19 11:00 11/04/19 10:40 Chloride IV 250 mls/hr Q24HR DUTCH Administration Protocol Insulin Human Lispro 0 unit 11/02/19 07:30 11/04/19 10:38 Humalog SUB-Q 4 unit ACHS DUTCH Administration Protocol Ondansetron HCl 4 mg 11/02/19 00:25 Zofran IV Q8H PRN Nausea And Vomiting Phenol 1 spray 11/01/19 23:05 11/02/19 02:37 Chloraseptic MM 1 spray PRN PRN Administration Sore Throat Sodium Chloride 10 ml 11/02/19 10:00 11/03/19 22:43 Sodium Chloride Flush Syringe 10 Ml IV 10 ml BID DUTCH Administration Sodium Chloride 10 ml 11/02/19 00:25 Sodium Chloride Flush Syringe 10 Ml IV PRN PRN LINE FLUSH
[2019-11-05 05:28] LABS: Hematocrit 39.7 % (35.5-45.6); Hemoglobin 13.3 gm/dl (11.8-15.2); Mean Corpuscular HGB Conc 34 % (32-34); Mean Corpuscular Volume 91 fl (84-94); Platelet Count 188 K/mm3 (140-440); Red Blood Count 4.37 M/mm3 (3.65-5.03)
[2019-11-05 05:51] LABS: BUN/Creatinine Ratio 15; Blood Urea Nitrogen 12 mg/dL (9-20); Calcium 8.6 mg/dL (8.4-10.2); Hemolysis Index 5
[2019-11-05] MEDS: INSULIN LISPRO 100 UNIT/ML SUB-Q SCH ×4 (07:30→22:47)
[2019-11-05] MEDS: cefTRIAXone/NS 2 GM/100 ML 2 GM/100 ML BAG IV SCH (09:58)
[2019-11-05] MEDS: AZITHROMYCIN 500 MG in SODIUM CHLORIDE 0.9% 250ML 250 ML IV SCH (09:58)
[2019-11-05] MEDS: ACETAMINOPHEN 325 MG TAB PO PRN ×2 (11:18→17:55)
--- NOTE | 2019-11-05 13:12 | Progress Note ---
Assessment and Plan Assessment and plan: sirs, possible coronavirus Start IV fluids, supportive care Status post Rocephin, azithromycin ER, hold further antibiotic Consult infectious disease, follow cultures To r/o COVID COVID screen was done, placed on droplet, contact precautions Acute resp failure On supplemental Oxygen now on high flow Oxygen Bilateral pneumonia To r/o Covid 19 PUI Diarrhea Check stool for culture, C. difficile Ordered, Hypertension, now normotensive Continue to monitor Diabetes Check fingersticks, start sliding scale Hypokalemia Give k-dur Thrombocytopenia, monitor DVT prophylaxis Full code status 11/03/19 patient with bilateral pneumonia. to r/o COVID. Consulted pulm for worsening resp failure, on high flow Oxygen 11/04/19 Patient with bilat pneumonia, PUI to r/o Covid. Now on HFNC at 40 l/min 11/05/19 Patient still on HFNC at 40 l/min. Give potassium supplement. History Interval history: shortness of breath still having Fever Hospitalist Physical - Physical exam Narrative exam: GEN: Not in acute distress, lying in bed,obese HEENT: Normocephalic, atraumatic, Neck: supple, No JVD Lungs: bilateral crackles, heart;S1 and S2 reg, no murmurs, rubs or gallop Abd:soft, non tender, non distended, normal bowel sounds Ext: No edema, no clubbing, no cyanosis, Neuro: Awake, alert, oriented x 3, no focal signs - Constitutional Vitals: Temp Pulse Resp BP Pulse Ox 99.4 F 120 H 19 151/91 90 11/05/19 12:00 11/05/19 12:00 11/05/19 12:00 11/05/19 12:00 11/05/19 12:00 Results - Labs CBC & Chem 7: 11/05/19 04:29 11/05/19 04:29 Labs: Laboratory Last Values WBC 9.0 K/mm3 (4.5-11.0) 11/05/19 04:29 RBC 4.37 M/mm3 (3.65-5.03) 11/05/19 04:29 Hgb 13.3 gm/dl (11.8-15.2) 11/05/19 04:29 Hct 39.7 % (35.5-45.6) 11/05/19 04:29 MCV 91 fl (84-94) 11/05/19 04:29 MCH 31 pg (28-32) 11/05/19 04:29 MCHC 34 % (32-34) 11/05/19 04:29 RDW 13.0 % (13.2-15.2) L 11/05/19 04:29 Plt Count 188 K/mm3 (140-440) 11/05/19 04:29 Lymph % (Auto) 12.5 % (13.4-35.0) L 11/02/19 04:58 [place] % (Auto) 6.3 % (0.0-7.3) 11/02/19 04:58 Eos % (Auto) 0.1 % (0.0-4.3) 11/02/19 04:58 Baso % (Auto) 0.5 % (0.0-1.8) 11/02/19 04:58 Lymph # 0.8 K/mm3 (1.2-5.4) L 11/02/19 04:58 [place] # 0.4 K/mm3 (0.0-0.8) 11/02/19 04:58 Eos # 0.0 K/mm3 (0.0-0.4) 11/02/19 04:58 Baso # 0.0 K/mm3 (0.0-0.1) 11/02/19 04:58 Seg Neutrophils % 80.6 % (40.0-70.0) H 11/02/19 04:58 Seg Neutrophils # 5.3 K/mm3 (1.8-7.7) 11/02/19 04:58 PT 13.6 Sec. (12.2-14.9) 11/01/19 15:55 INR 1.03 (0.87-1.13) 11/01/19 15:55 APTT 24.2 Sec. (24.2-36.6) 11/01/19 15:55 ABG pH 7.397 pH Units (7.350-7.450) 11/01/19 17:25 ABG pCO2 35.3 mm Hg 11/01/19 17:25 ABG pO2 47.1 mm Hg (80.0-90.0) L 11/01/19 17:25 ABG HCO3 21.3 mmol/L (20.0-26.0) 11/01/19 17:25 ABG O2 Saturation 82.3 % (95.0-99.0) L 11/01/19 17:25 ABG O2 Content 17.6 (0.0-44) 11/01/19 17:25 ABG Base Excess -2.8 mmol/L (-2.0-3.0) L 11/01/19 17:25 ABG Hemoglobin 15.7 gm/dl (14.0-18.0) 11/01/19 17:25 ABG Carboxyhemoglobin 2.1 % (0.0-5.0) 11/01/19 17:25 ABG Methemoglobin 0.8 % (0.0-1.5) 11/01/19 17:25 Oxyhemoglobin 79.9 % (95.0-99.0) L 11/01/19 17:25 FiO2 21 % 11/01/19 17:25 Sodium 136 mmol/L (137-145) L 11/05/19 04:29 Potassium 3.5 mmol/L (3.6-5.0) L 11/05/19 04:29 Chloride 90.6 mmol/L (98-107) L 11/05/19 04:29 Carbon Dioxide 30 mmol/L (22-30) 11/05/19 04:29 Anion Gap 19 mmol/L 11/05/19 04:29 BUN 12 mg/dL (9-20) 11/05/19 04:29 Creatinine 0.8 mg/dL (0.8-1.5) 11/05/19 04:29 Estimated GFR > 60 ml/min 11/05/19 04:29 BUN/Creatinine Ratio 15 % 11/05/19 04:29 Glucose 249 mg/dL (75-100) H 11/05/19 04:29 POC Glucose 359 (70-105) H 11/05/19 11:17 Calcium 8.6 mg/dL (8.4-10.2) 11/05/19 04:29 Total Bilirubin 0.70 mg/dL (0.1-1.2) 11/01/19 15:55 AST 40 units/L (5-40) 11/01/19 15:55 ALT 21 units/L (7-56) 11/01/19 15:55 Alkaline Phosphatase 90 units/L (35-129) 11/01/19 15:55 Total Creatine Kinase 161 units/L (55-170) 11/01/19 15:55 CK-MB (CK-2) < 1.0 ng/mL (0.0-4.0) 11/01/19 15:55 CK-MB (CK-2) Rel Index 0.6 (0-4) 11/01/19 15:55 Total Protein 7.9 g/dL (6.3-8.2) 11/01/19 15:55 Albumin 3.6 g/dL (3.9-5) L 11/01/19 15:55 Albumin/Globulin Ratio 0.8 % 11/01/19 15: Lipase 28 units/L (13-60) 11/01/19 15:55 Procalcitonin 0.18 ng/mL (<0.15) 11/03/19 05:33 TSH 0.736 mlU/mL (0.270-4.200) 11/01/19 15:55 Free T4 1.18 ng/dL (0.76-1.46) 11/01/19 15:55 Urine Color Yellow (Yellow) 11/01/19 17:02 Urine Turbidity Clear (Clear) 11/01/19 17:02 Urine pH 5.0 (5.0-7.0) 11/01/19 17:02 Ur Specific [place] 1.027 (1.003-1.030) 11/01/19 17:02 Urine Protein 30 mg/dl mg/dL (Negative) 11/01/19 17:02 Urine Glucose (UA) >=500 mg/dL (Negative) 11/01/19 17:02 Urine Ketones 20 mg/dL (Negative) 11/01/19 17:02 Urine Blood Neg (Negative) 11/01/19 17:02 Urine Nitrite Neg (Negative) 11/01/19 17:02 Ur Reducing Substances Not Reportable 11/01/19 17:02 Urine Bilirubin Neg (Negative) 11/01/19 17:02 Urine Ictotest Not Reportable 11/01/19 17:02 Urine Urobilinogen < 2.0 mg/dL (<2.0) 11/01/19 17:02 Ur Leukocyte Esterase Neg (Negative) 11/01/19 17:02 Urine WBC (Auto) 1.0 /HPF (0.0-6.0) 11/01/19 17:02 Urine RBC (Auto) 3.0 /HPF (0.0-6.0) 11/01/19 17:02 Urine Mucus Few /HPF 11/01/19 17:02 Influenza A (Rapid) Negative (Negative) 11/01/19 17:23 Influenza B (Rapid) Negative (Negative) 11/01/19 17:23 Microbiology: Microbiology 11/01/19 18:26 Peripheral/Venous Blood Culture - Preliminary NO GROWTH AFTER 72 HOURS 11/01/19 18:26 Peripheral/Venous Blood Culture - Preliminary NO GROWTH AFTER 72 HOURS Bansal/IV: Voiding Method Urinal IV Catheter Type [Left Hand] INT / Saline Lock Active Medications - Current Medications Current Medications: Generic Name Dose Route Start Last Admin Trade Name Freq PRN Reason Stop Dose Admin Acetaminophen 650 mg 11/02/19 00:25 11/05/19 11:18 Tylenol PO 650 mg Q4H PRN Administration Pain MILD(1-3)/Fever >100.5/CARDENAS Dextrose 0 ml 11/02/19 00:25 D50w (25gm) Syringe IV Q30MIN PRN Hypoglycemia Protocol Ceftriaxone Sodium 2 gm in 100 mls @ 200 mls/hr 11/03/19 11:00 11/05/19 09:58 Rocephin/Ns 2 Gm/100 Ml IV 200 mls/hr Q24HR DUTCH Administration Protocol Azithromycin 500 mg/ Sodium 250 mls @ 250 mls/hr 11/03/19 11:00 11/05/19 09:58 Chloride IV 250 mls/hr Q24HR DUTCH Administration Protocol Insulin Human Isoph/Insulin Regular 8 unit 11/05/19 17:00 Humulin 70/30 SUB-Q BIDDIAB DUTCH Insulin Human Lispro 0 unit 11/02/19 07:30 11/05/19 11:18 Humalog SUB-Q 10 unit ACHS DUTCH Administration Protocol Ondansetron HCl 4 mg 11/02/19 00:25 Zofran IV Q8H PRN Nausea And Vomiting Phenol 1 spray 11/01/19 23:05 11/02/19 02:37 Chloraseptic MM 1 spray PRN PRN Administration Sore Throat Sodium Chloride 10 ml 11/02/19 10:00 11/05/19 09:59 Sodium Chloride Flush Syringe 10 Ml IV 10 ml BID DUTCH Administration Sodium Chloride 10 ml 11/02/19 00:25 Sodium Chloride Flush Syringe 10 Ml IV PRN PRN LINE FLUSH
[2019-11-05] MEDS ORDERED: POTASSIUM CHLORIDE ER 20 MEQ TAB PO ONE ×2 (13:30→17:31)
[2019-11-05] MEDS ORDERED: FUROSEMIDE 40 MG/4 ML INJ IV ONE (14:30)
--- NOTE | 2019-11-05 14:39 | Progress Note ---
Assessment and Plan Cultures: Blood culture 11/01/2019 no growth to date A/P: 54-year-old man past medical history of hypertension, diabetes, GERD ad mitted with nausea and vomiting. #COVID-19 rule out/suspect severe COVID pneumonia: Patient with nausea and vomiting, sometimes COVID-19 can present with an abdominal prodrome prior to respiratory symptoms. He was hypoxic on admission. He had a normal white count with a lymphopenia in support of this possible diagnosis. Department of Health form has already been filled out, follow-up testing from them. #Diarrhea: Patient reports it was intermittent and not that frequent. Likely due to COVID #Acute respiratory failure: on HFO2. Chest x-ray with bilateral infiltrates #Diabetes: tight glycemic control for best outcomes. Recs: Continue COVID isolation precautions per protocol Start empirically hydroxychloroquine 400 mg PO BID for 1 day then 200 mg PO BID for 4 days (total 5 days) Continue ceftriaxone 2 gm IV q day Stop azithromycin Obtain ferritin, LDH, D-Dimer, CRP for COVID risk stratification Daily QT monitoring - stop plaqenil if QT interval >500 Darya Pérez MD Infectious Diseases Photo Intern [facility] M [phone] O [phone] Subjective Date of service: 11/05/19 Principal diagnosis: r/o COVID Interval history: Remains on high flow, mild fever 100.3. Objective - Exam Narrative Exam: Constitutional: Alert, cooperative. No acute distress on high flow Head, Ears, Nose: Normocephalic, atraumatic. External ears, nose normal. Neck: Supple, no meningeal signs Oral: dentition fair, no thrush Cardiovascular: S1, S2 normal. Respiratory: Bilaterally diminished breath sounds GI: Soft, non-tender; bowel sounds normal. No peritoneal signs. Musculoskeletal: No pedal edema, no cyanosis. Skin: No rash or abscess Hem/Lymphatic: No palpable cervical or supraclavicular nodes. No lymphangitis Psych: Mood ok. Affect normal Neurological: Awake, alert, oriented. No gross abnormality - Constitutional Vitals: Vital Signs Temp Pulse Resp BP Pulse Ox 99.4 F 120 H 19 151/91 90 11/05/19 12:00 11/05/19 12:00 11/05/19 12:11/05/19 12:00 11/05/19 12:00 Temperature -Last 24 Hours Temperature 99.4 F Temperature 100.5 F Temperature 98.4 F Temperature 98.8 F Temperature 98.2 F - Labs CBC & Chem 7: 11/05/19 04:29 11/05/19 04:29 Labs: Abnormal lab results 11/04/19 11/04/19 11/05/19 Range/Units 16:48 22:23 04:29 RDW 13.0 L (13.2-15.2) % Sodium (137-145) mmol/L Potassium (3.6-5.0) mmol/L Chloride (98-107) mmol/L Glucose (75-100) mg/dL POC Glucose 307 H 316 H (70-105) 11/05/19 11/05/19 11/05/19 Range/Units 04:29 08:34 11:17 RDW (13.2-15.2) % Sodium 136 L (137-145) mmol/L Potassium 3.5 L (3.6-5.0) mmol/L Chloride 90.6 L (98-107) mmol/L Glucose 249 H (75-100) mg/dL POC Glucose 277 H 359 H (70-105)
[2019-11-05] MEDS: HYDROXYCHLOROQUINE 200 MG TAB PO SCH ×2 (15:24→22:46)
[2019-11-05] MEDS: ZINC SULFATE 220 MG CAP PO SCH (16:00)
[2019-11-05] MEDS: INSULIN NPH/REGULAR 70/30 INJ SUB-Q SCH (16:00)
[2019-11-05] MEDS: ENOXAPARIN 40 MG/0.4 ML INJ SUB-Q SCH (22:42)
[2019-11-06] MEDS: INSULIN LISPRO 100 UNIT/ML SUB-Q SCH ×4 (06:59→17:06)
[2019-11-06] MEDS: cefTRIAXone/NS 2 GM/100 ML 2 GM/100 ML BAG IV SCH (09:53)
[2019-11-06] MEDS: ZINC SULFATE 220 MG CAP PO SCH (09:53)
[2019-11-06] MEDS: INSULIN NPH/REGULAR 70/30 INJ SUB-Q SCH ×2 (09:53→17:06)
--- NOTE | 2019-11-06 10:35 | XRay Report ---
CHEST - 1 VIEW 1011 hours INDICATION: Hypoxemia COMPARISON: 11/03/2019 FINDINGS: Support devices: None Heart: Stable cardiomediastinal silhouette. Lungs/pleura: Scattered bilateral lung opacities appear unchanged. No consolidation, large pleural e ffusion or pneumothorax has developed. Additional findings: None. IMPRESSION: Unchanged exam. Signer Name: Ayush Gu Jr, MD Signed: 11/06/2019 10:31 AM Workstation Name: [id number]
--- NOTE | 2019-11-06 13:14 | Progress Note ---
Assessment and Plan 54 y/o male with acute hypoxic respiratory failure, now requiring HFNC 1. Would like to give additional lasix today but need to wait on labs to come back. 2. If oxygen requirement does not improve, will consider elective intubation vs transferring to negative pressure room and using bipap therapy. Will discuss with charge nurse 3. Patient does carry a diagnosis of COPD. Not currently on any therapy. He has quit smoking. No wheezing right now. Hold on steroids. Guarded prognosis. Will continue to monitor. Please see number 2 for possible contingency plan. Subjective Date of service: 11/06/19 Principal diagnosis: r/o COVID Interval history: Down to 85%. Still comfortable. Tolerating diuresis but no labs done this am. CXR is unchanged. Objective Vital Signs - 12hr 11/06/19 11/06/19 11/06/19 01:00 02:00 02:34 Temperature Pulse Rate 123 H 122 H Pulse Rate [ From Monitor] Respiratory 31 H 29 H Rate Blood Pressure 154/87 135/85 O2 Sat by Pulse 94 96 90 Oximetry 11/06/19 11/06/19 11/06/19 03:00 04:00 05:00 Temperature 100.8 F H Pulse Rate 120 H 117 H 117 H Pulse Rate [ 116 H From Monitor] Respiratory 22 25 H 28 H Rate Blood Pressure 140/88 126/78 128/77 O2 Sat by Pulse 93 98 96 Oximetry 11/06/19 11/06/19 11/06/19 06:00 07:00 08:00 Temperature Pulse Rate 114 H 116 H 119 H Pulse Rate [ From Monitor] Respiratory 21 31 H 27 H Rate Blood Pressure 128/78 126/74 145/90 O2 Sat by Pulse 94 89 93 Oximetry 11/06/19 11/06/19 11/06/19 09:00 10:00 11:00 Temperature Pulse Rate 123 H 119 H 118 H Pulse Rate [ From Monitor] Respiratory 30 H 23 30 H Rate Blood Pressure 143/86 141/89 140/89 O2 Sat by Pulse 85 87 88 Oximetry CBC and BMP: 11/05/19 04:29 11/05/19 04:29 ABG, PT/INR, D-dimer: ABG ABG pH 7.397 pH Units (7.350-7.450) 11/01/19 17:25 ABG pCO2 35.3 mm Hg 11/01/19 17:25 ABG pO2 47.1 mm Hg (80.0-90.0) L 11/01/19 17:25 ABG O2 Saturation 82.3 % (95.0-99.0) L 11/01/19 17:25 PT/INR, D-dimer PT 13.6 Sec. (12.2-14.9) 11/01/19 15:55 INR 1.03 (0.87-1.13) 11/01/19 15:55 D-Dimer 4435.56 ng/mlDDU (0-234) H 11/05/19 22:40 Abnormal lab findings: Abnormal Labs 11/01/19 11/01/19 11/01/19 15:55 15:55 17:25 Hgb 15.4 H RDW 13.1 L Plt Count 123 L Lymph % (Auto) 10.1 L Lymph # 0.7 L Seg Neutrophils % 83.4 H D-Dimer ABG pO2 47.1 L ABG O2 Saturation 82.3 L ABG Base Excess -2.8 L Oxyhemoglobin 79.9 L Sodium 131 L Potassium Chloride 92.7 L Carbon Dioxide 19 L BUN 25 H Glucose 414 H POC Glucose Calcium Ferritin Lactate Dehydrogenase C-Reactive Protein Albumin 3.6 L 11/02/19 11/02/19 11/02/19 04:58 04:58 23:46 Hgb RDW Plt Count 116 L Lymph % (Auto) 12.5 L Lymph # 0.8 L Seg Neutrophils % 80.6 H D-Dimer ABG pO2 ABG O2 Saturation ABG Base Excess Oxyhemoglobin Sodium Potassium Chloride 97.9 L Carbon Dioxide BUN Glucose 313 H POC Glucose 260 H Calcium 8.3 L Ferritin Lactate Dehydrogenase C-Reactive Protein Albumin 11/03/19 11/03/19 11/03/19 11:21 16:59 23:20 Hgb RDW Plt Count Lymph % (Auto) Lymph # Seg Neutrophils % D-Dimer ABG pO2 ABG O2 Saturation ABG Base Excess Oxyhemoglobin Sodium Potassium Chloride Carbon Dioxide BUN Glucose POC Glucose 251 H 202 H 304 H Calcium Ferritin Lactate Dehydrogenase C-Reactive Protein Albumin 11/04/19 11/04/19 11/04/19 04:50 04:50 08:54 Hgb RDW 13.0 L Plt Count Lymph % (Auto) Lymph # Seg Neutrophils % D-Dimer ABG pO2 ABG O2 Saturation ABG Base Excess Oxyhemoglobin Sodium 134 L Potassium Chloride 90.8 L Carbon Dioxide 31 H D BUN Glucose 236 H POC Glucose 230 H Calcium Ferritin Lactate Dehydrogenase C-Reactive Protein Albumin 11/04/19 11/04/19 11/04/19 12:42 16:48 22:23 Hgb RDW Plt Count Lymph % (Auto) Lymph # Seg Neutrophils % D-Dimer ABG pO2 ABG O2 Saturation ABG Base Excess Oxyhemoglobin Sodium Potassium Chloride Carbon Dioxide BUN Glucose POC Glucose 293 H 307 H 316 H Calcium Ferritin Lactate Dehydrogenase C-Reactive Protein Albumin 11/05/19 11/05/19 11/05/19 04:29 04:29 08:34 Hgb RDW 13.0 L Plt Count Lymph % (Auto) Lymph # Seg Neutrophils % D-Dimer ABG pO2 ABG O2 Saturation ABG Base Excess Oxyhemoglobin Sodium 136 L Potassium 3.5 L Chloride 90.6 L Carbon Dioxide BUN Glucose 249 H POC Glucose 277 H Calcium Ferritin Lactate Dehydrogenase C-Reactive Protein Albumin 11/05/19 11/05/19 11/05/19 11:17 16:13 22:13 Hgb RDW Plt Count Lymph % (Auto) Lymph # Seg Neutrophils % D-Dimer ABG pO2 ABG O2 Saturation ABG Base Excess Oxyhemoglobin Sodium Potassium Chloride Carbon Dioxide BUN Glucose POC Glucose 359 H 223 H 211 H Calcium Ferritin Lactate Dehydrogenase C-Reactive Protein Albumin 11/05/19 11/05/19 11/05/19 22:40 22:40 22:40 Hgb RDW Plt Count Lymph % (Auto) Lymph # Seg Neutrophils % D-Dimer 4435.56 H ABG pO2 ABG O2 Saturation ABG Base Excess Oxyhemoglobin Sodium Potassium Chloride Carbon Dioxide BUN Glucose POC Glucose Calcium Ferritin 3416.0 H Lactate Dehydrogenase 668 H C-Reactive Protein Albumin 11/05/19 11/06/19 22:40 10:02 Hgb RDW Plt Count Lymph % (Auto) Lymph # Seg Neutrophils % D-Dimer ABG pO2 ABG O2 Saturation ABG Base Excess Oxyhemoglobin Sodium Potassium Chloride Carbon Dioxide BUN Glucose POC Glucose 269 H Calcium Ferritin Lactate Dehydrogenase C-Reactive Protein 38.40 H Albumin
[2019-11-06] MEDS ORDERED: HYDROXYCHLOROQUINE 200 MG TAB PO SCH (14:46)
--- NOTE | 2019-11-06 16:35 | Progress Note ---
Assessment and Plan Cultures: Blood culture 11/01/2019 no growth to date A/P: 54-year-old man past medical history of hypertension, diabetes, GERD admitted with nausea and vomiting. #COVID-19 rule out/suspect severe COVID pneumonia: not better on plaquenil day 2. Inflammatory markers severely elevated - ddimer 4435, ferritin 3416, LDH 668, CRP 38, procal normal- high suspicion of cytokine release syndrome #Diarrhea: Patient reports it was intermittent and not that frequent. Likely due to COVID #Acute respiratory failure: on HFO2. Chest x-ray with bilateral infiltrates #Diabetes: tight glycemic control for best outcomes. Recs: May need intubation - high risk for ARDS Continue COVID isolation precautions per protocol Continue empirically hydroxychloroquine increase to 200 mg PO TID Continue ceftriaxone 2 gm IV q day f/u ferritin, LDH, D-Dimer, CRP every 2 days request IL-6 stat - sent out and alert pharmacy about actemra Daily EKG for QT monitoring discussed with Dr Mellisa Pérez MD Infectious Diseases Meter Reading Clerk [facility] [phone] O [phone] Subjective Date of service: 11/06/19 Principal diagnosis: r/o COVID Interval history: Remains on high flow O2 35% 4L, mild fever 100.8 Objective - Exam Narrative Exam: Constitutional: Alert, cooperative. No acute distress on high flow Head, Ears, Nose: limited due to lack of PPE Neck: limited due to lack of PPE Oral: limited due to lack of PPE Cardiovascular: limited due to lack of PPE Respiratory: limited due to lack of PPE GI: limited due to lack of PPE Musculoskeletal: limited due to lack of PPE Skin: No rash or abscess Hem/Lymphatic: limited due to lack of PPE Psych: Mood ok. Affect normal Neurological: Awake, alert, oriented. No gross abnormality - Constitutional Vitals: Vital Signs Temp Pulse Resp BP Pulse Ox 99.9 F H 124 H 31 H 152/90 93 11/06/19 12:00 11/06/19 14:53 11/06/19 14:53 11/06/19 14:53 11/06/19 14:53 Temperature -Last 24 Hours Temperature 99.9 F Temperature 100.2 F Temperature 100.8 F Temperature 100.4 F Temperature 100.3 F Temperature 101.9 F - Labs CBC & Chem 7: 11/05/19 04:29 11/05/19 04:29 Labs: Abnormal lab results 11/05/19 11/05/19 11/05/19 Range/Units 16:13 22:13 22:40 D-Dimer (0-234) ng/mlDDU POC Glucose 223 H 211 H (70-105) Ferritin 3416.0 H (13.0-400.0) ng/mL Lactate Dehydrogenase (91-180) units/L C-Reactive Protein (0.00-1.30) mg/dL 11/05/19 11/05/19 11/05/19 Range/Units 22:40 22:40 22:40 D-Dimer 4435.56 H (0-234) ng/mlDDU POC Glucose (70-105) Ferritin (13.0-400.0) ng/mL Lactate Dehydrogenase 668 H (91-180) units/L C-Reactive Protein 38.40 H (0.00-1.30) mg/dL 11/06/19 11/06/19 Range/Units 10:02 14:10 D-Dimer (0-234) ng/mlDDU POC Glucose 269 H 200 H (70-105) Ferritin (13.0-400.0) ng/mL Lactate Dehydrogenase (91-180) units/L C-Reactive Protein (0.00-1.30) mg/dL
[2019-11-06 16:37] LABS: ABG Base Excess 5.1 mmol/L (-2.0-3.0); ABG HCO3 29.8 mmol/L (20.0-26.0); ABG Methemoglobin 0.8 % (0.0-1.5); ABG Oxygen Saturation 85.9 % (95.0-99.0); ABG PCO2 44.4 mm Hg; ABG PH 7.445 pH Units (7.350-7.450); ABG PO2 50.5 mm Hg (80.0-90.0)
--- NOTE | 2019-11-06 16:53 | Progress Note ---
Assessment and Plan Assessment and plan: Sepsis, possible coronavirus Start IV fluids, supportive care Status post Rocephin, azithromycin ER, hold further antibiotic Consult infectious disease, follow cultures To r/o COVID COVID screen was done, placed on droplet, contact precautions nasal swab was done. Result pending Acute resp failure On supplemental Oxygen now on high flow Oxygen Pulm following Bilateral pneumonia To r/o Covid 19 PUI Diarrhea Check stool for culture, C. difficile Ordered, Hypertension, now normotensive Continue to monitor Diabetes mellitus type 2 Check fingersticks, start sliding scale Hypokalemia Give k-dur Thrombocytopenia, monitor DVT prophylaxis Full code status 11/03/19 patient with bilateral pneumonia. to r/o COVID. Consulted pulm for worsening resp failure, on high flow Oxygen 11/04/19 Patient with bilat pneumonia, PUI to r/o Covid. Now on HFNC at 40 l/min 11/05/19 Patient still on HFNC at 40 l/min. Give potassium supplement. 11/06/19 he is still very ill, shortness of breath on, has acute resp failure on high flow oxygen . Covid test done. Result pending History Interval history: shortness of breath still having Fever Hospitalist Physical - Physical exam Narrative exam: GEN: Not in acute distress, lying in bed,obese HEENT: Normocephalic, atraumatic, Neck: supple, No JVD Lungs: bilateral crackles, heart;S1 and S2 reg, no murmurs, rubs or gallop Abd:soft, non tender, non distended, normal bowel sounds Ext: No edema, no clubbing, no cyanosis, Neuro: Awake,alert - Constitutional Vitals: Temp Pulse Resp BP Pulse Ox 99.9 F H 124 H 31 H 152/90 93 11/06/19 12:00 11/06/19 14:53 11/06/19 14:53 11/06/19 14:53 11/06/19 14:53 Results - Labs CBC & Chem 7: 11/05/19 04:29 11/06/19 20:24 Labs: Laboratory Last Values WBC 9.0 K/mm3 (4.5-11.0) 11/05/19 04:29 RBC 4.37 M/mm3 (3.65-5.03) 11/05/19 04:29 Hgb 13.3 gm/dl (11.8-15.2) 11/05/19 04:29 Hct 39.7 % (35.5-45.6) 11/05/19 04:29 MCV 91 fl (84-94) 11/05/19 04:29 MCH 31 pg (28-32) 11/05/19 04:29 MCHC 34 % (32-34) 11/05/19 04:29 RDW 13.0 % (13.2-15.2) L 11/05/19 04:29 Plt Count 188 K/mm3 (140-440) 11/05/19 04:29 Lymph % (Auto) 12.5 % (13.4-35.0) L 11/02/19 04:58 Baker % (Auto) 6.3 % (0.0-7.3) 11/02/19 04:58 Eos % (Auto) 0.1 % (0.0-4.3) 11/02/19 04:58 Baso % (Auto) 0.5 % (0.0-1.8) 11/02/19 04:58 Lymph # 0.8 K/mm3 (1.2-5.4) L 11/02/19 04:58 Baker # 0.4 K/mm3 (0.0-0.8) 11/02/19 04:58 Eos # 0.0 K/mm3 (0.0-0.4) 11/02/19 04:58 Baso # 0.0 K/mm3 (0.0-0.1) 11/02/19 04:58 Seg Neutrophils % 80.6 % (40.0-70.0) H 11/02/19 04:58 Seg Neutrophils # 5.3 K/mm3 (1.8-7.7) 11/02/19 04:58 PT 13.6 Sec. (12.2-14.9) 11/01/19 15:55 INR 1.03 (0.87-1.13) 11/01/19 15:55 APTT 24.2 Sec. (24.2-36.6) 11/01/19 15:55 D-Dimer 4435.56 ng/mlDDU (0-234) H 11/05/19 22:40 ABG pH 7.445 pH Units (7.350-7.450) 11/06/19 16:25 ABG pCO2 44.4 mm Hg 11/06/19 16:25 ABG pO2 50.5 mm Hg (80.0-90.0) L 11/06/19 16:25 ABG HCO3 29.8 mmol/L (20.0-26.0) H 11/06/19 16:25 ABG O2 Saturation 85.9 % (95.0-99.0) L 11/06/19 16:25 ABG O2 Content 16.0 (0.0-44) 11/06/19 16:25 ABG Base Excess 5.1 mmol/L (-2.0-3.0) H 11/06/19 16:25 ABG Hemoglobin 13.7 gm/dl (14.0-18.0) L 11/06/19 16:25 ABG Carboxyhemoglobin 1.8 % (0.0-5.0) 11/06/19 16:25 ABG Methemoglobin 0.8 % (0.0-1.5) 11/06/19 16:25 Oxyhemoglobin 83.6 % (95.0-99.0) L 11/06/19 16:25 FiO2 90 % 11/06/19 16:25 Sodium 136 mmol/L (137-145) L 11/05/19 04:29 Potassium 3.5 mmol/L (3.6-5.0) L 11/05/19 04:29 Chloride 90.6 mmol/L (98-107) L 11/05/19 04:29 Carbon Dioxide 30 mmol/L (22-30) 11/05/19 04:29 Anion Gap 19 mmol/L 11/05/19 04:29 BUN 12 mg/dL (9-20) 11/05/19 04:29 Creatinine 0.8 mg/dL (0.8-1.5) 11/05/19 04:29 Estimated GFR > 60 ml/min 11/05/19 04:29 BUN/Creatinine Ratio 15 % 11/05/19 04:29 Glucose 249 mg/dL (75-100) H 11/05/19 04:29 POC Glucose 200 (70-105) H 11/06/19 14:10 Calcium 8.6 mg/dL (8.4-10.2) 11/05/19 04:29 Ferritin 3416.0 ng/mL (13.0-400.0) H 11/05/19 22:40 Total Bilirubin 0.70 mg/dL (0.1-1.2) 11/01/19 15:55 AST 40 units/L (5-40) 11/01/19 15:55 ALT 21 units/L (7-56) 11/01/19 15:55 Alkaline Phosphatase 90 units/L (35-129) 11/01/19 15:55 Lactate Dehydrogenase 668 units/L (91-180) H 11/05/19 22:40 Total Creatine Kinase 161 units/L (55-170) 11/01/19 15:55 CK-MB (CK-2) < 1.0 ng/mL (0.0-4.0) 11/01/19 15:55 CK-MB (CK-2) Rel Index 0.6 (0-4) 11/01/19 15:55 C-Reactive Protein 38.40 mg/dL (0.00-1.30) H 11/05/19 22:40 Total Protein 7.9 g/dL (6.3-8.2) 11/01/19 15:55 Albumin 3.6 g/dL (3.9-5) L 11/01/19 15:55 Albumin/Globulin Ratio 0.8 % 11/01/19 15:55 Lipase 28 units/L (13-60) 11/01/19 15:55 Procalcitonin 0.17 ng/mL (<0.15) 11/05/19 22:40 TSH 0.736 mlU/mL (0.270-4.200) 11/01/19 15:55 Free T4 1.18 ng/dL (0.76-1.46) 11/01/19 15:55 Urine Color Yellow (Yellow) 11/01/19 17:02 Urine Turbidity Clear (Clear) 11/01/19 17:02 Urine pH 5.0 (5.0-7.0) 11/01/19 17:02 Ur Specific Creole 1.027 (1.003-1.030) 11/01/19 17:02 Urine Protein 30 mg/dl mg/dL (Negative) 11/01/19 17:02 Urine Glucose (UA) >=500 mg/dL (Negative) 11/01/19 17:02 Urine Ketones 20 mg/dL (Negative) 11/01/19 17:02 Urine Blood Neg (Negative) 11/01/19 17:02 Urine Nitrite Neg (Negative) 11/01/19 17:02 Ur Reducing Substances Not Reportable 11/01/19 17:02 Urine Bilirubin Neg (Negative) 11/01/19 17:02 Urine Ictotest Not Reportable 11/01/19 17:02 Urine Urobilinogen < 2.0 mg/dL (<2.0) 11/01/19 17:02 Ur Leukocyte Esterase Neg (Negative) 11/01/19 17:02 Urine WBC (Auto) 1.0 /HPF (0.0-6.0) 11/01/19 17:02 Urine RBC (Auto) 3.0 /HPF (0.0-6.0) 11/01/19 17:02 Urine Mucus Few /HPF 11/01/19 17:02 Influenza A (Rapid) Negative (Negative) 11/01/19 17:23 Influenza B (Rapid) Negative (Negative) 11/01/19 17:23 Microbiology: Microbiology 11/01/19 18:26 Peripheral/Venous Blood Culture - Preliminary NO GROWTH AFTER 4 DAYS 11/01/19 18:26 Peripheral/Venous Blood Culture - Preliminary NO GROWTH AFTER 4 DAYS Bansal/IV: Voiding Method Urinal IV Catheter Type [Right INT / Saline Lock Forearm] IV Catheter Type [Left Hand] INT / Saline Lock Active Medications - Current Medications Current Medications: Generic Name Dose Route Start Last Admin Trade Name Freq PRN Reason Stop Dose Admin Acetaminophen 650 mg 11/02/19 00:25 11/05/19 17:55 Tylenol PO 650 mg Q4H PRN Administration Pain MILD(1-3)/Fever >100.5/CARDENAS Dextrose 0 ml 11/02/19 00:25 D50w (25gm) Syringe IV Q30MIN PRN Hypoglycemia Protocol Enoxaparin Sodium 40 mg 11/05/19 22:00 11/05/19 22:42 Enoxaparin SUB-Q 40 mg QDAY@2200 DUTCH Administration Hydroxychloroquine Sulfate 200 mg 11/06/19 20:00 Plaquenil PO 11/15/19 19:59 TID DUTCH Ceftriaxone Sodium 2 gm in 100 mls @ 200 mls/hr 11/03/19 11:00 11/06/19 09:53 Rocephin/Ns 2 Gm/100 Ml IV 200 mls/hr Q24HR DUTCH Administration Protocol Insulin Human Isoph/Insulin Regular 8 unit 11/05/19 17:00 11/06/19 09:53 Humulin 70/30 SUB-Q 8 unit BIDDIAB DUCTH Administration Insulin Human Lispro 0 unit 11/02/19 07:30 11/06/19 13:59 Humalog SUB-Q Not Given [facility] Protocol Ondansetron HCl 4 mg 11/02/19 00:25 Zofran IV Q8H PRN Nausea And Vomiting Phenol 1 spray 11/01/19 23:05 11/02/19 02:37 Chloraseptic MM 1 spray PRN PRN Administration Sore Throat Sodium Chloride 10 ml 11/02/19 10:00 11/06/19 09:53 Sodium Chloride Flush Syringe 10 Ml IV 10 ml BID DUTCH Administration Sodium Chloride 10 ml 11/02/19 00:25 Sodium Chloride Flush Syringe 10 Ml IV PRN PRN LINE FLUSH Zinc Sulfate 220 mg 11/05/19 16:00 11/06/19 09:53 Zinc Sulfate PO 220 mg QDAY DUTCH Administration
[2019-11-06] MEDS: HYDROXYCHLOROQUINE 200 MG TAB PO SCH (20:33)
[2019-11-06 21:23] LABS: BUN/Creatinine Ratio 19; Blood Urea Nitrogen 13 mg/dL (9-20); Calcium 8.6 mg/dL (8.4-10.2); Hemolysis Index 45
[2019-11-06] MEDS ORDERED: LIP THERAPY VASELINE TP PRN (22:35)
[2019-11-06] MEDS ORDERED: MINERAL OIL/PETROLATUM, WHITE OPHTH OINT 3.5 GM OU PRN (22:35)
[2019-11-06] MEDS ORDERED: fentaNYL 100 MCG/2 ML INJ IV PRN (22:35)
[2019-11-06] MEDS: fentaNYL DRIP Premix 2,000 MCG/100 ML BAG IV SCH (22:45)
[2019-11-06] MEDS ORDERED: propofoL 200 MG/20 ML VIAL IV ONE (22:50)
--- NOTE | 2019-11-06 23:01 | Event Note ---
Date: 11/06/19 Chart/labs/images reviewed. Discussed patient with Dr. Genao. Pt. intubated by anesthesia without difficulty. Patient awake and moving around after intubation w/ O2 saturation of 78% on PEEP of +10, FiO2 100%, TV of 500, and RR of 20. Remains tachycardic with stable BP. Imp: 1. Bilateral pneumonia, likely Covid-19 2. Acute respiratory failure, hypoxia 3. ARDS 4. Diarrhea 5. COPD per hx w/o exac. Rec: 1. Needs ARDSnet protocol to decrease VILI; ideal body weight is ~ 80 kilograms so 6mL/kg equals target tidal volume of 480; cont. RR of 20, increase PEEP to +15; ABG in 30 minutes 2. ABX and Hydroxychloroquine/Zinc per ID; f/u Covid-19 PCR 3. Avoid IVFs; keep as dry as possible; will give another Lasix 20mg IV dose now 4. Deep sedation with Propofol and Fentanyl; add paralysis w/ Nimbex if need be 5. Labs in AM 6. Avoid steroids 7. Echo 8. Prognosis guarded to poor; no family present CCt 31 minutes
[2019-11-06] MEDS ORDERED: FUROSEMIDE 20 MG/2 ML INJ IV ONE (23:08)
--- NOTE | 2019-11-06 23:13 | Event Note ---
Date: 11/06/19 (ICU Intubation) Called to bedside for patient with acute hypoxic respiratory failure 2/2 PNA, suspected COVID-19. Patient SpO2 low 90s on BiPAP, tachycardic, hypertensive, lethargic but appropriately responsive. Myself, Gabriel DÍAZ, RT, and NUMERICAL CONTROL DRILL PRESS OPERATOR donned PPE per protocol prior to patient contact. Preoxygenated 100% FIO2 via BiPAP. Clear plastic drape placed over patient's head. RSI w/ propofol 150mg IV and succinylcholine 140mg IV. Once adequate paralysis achieved, BiPAP mask removed and patient intubated with Glidescope 4, grade 1 view, 8.0 oETT secured at 24cm @ the molar. PPV via mask not attempted. Tube placement confirmed with direct visualization and positive color change on CO2 detector. Brief desaturation to high 60s with recovery to low 90s within 60 secs. HD stable. Patient then transferred to negative pressure ICU bed with clear plastic drape remaining in place and bag ventilation with in-line antimicrobial filter. Once in new room, placed on vent by RT and sedation orders placed by ICU MD. CXR ordered. Time [id number] - [id number] Juana Rivera MD Anesthesiologist
[2019-11-07 00:01] LABS: ABG Base Excess -1.2 mmol/L (-2.0-3.0); ABG HCO3 24.4 mmol/L (20.0-26.0); ABG Methemoglobin 0.7 % (0.0-1.5); ABG Oxygen Saturation 97.2 % (95.0-99.0); ABG PCO2 44.7 mm Hg; ABG PH 7.356 pH Units (7.350-7.450); ABG PO2 96.4 mm Hg (80.0-90.0)
--- NOTE | 2019-11-07 00:02 | XRay Report ---
CHEST 1 VIEW INDICATION / CLINICAL INFORMATION: ETT placement. COMPARISON: 11/06/2019 at 1011 hours FINDINGS: SUPPORT DEVICES: Endotracheal tube is present and extends into the proximal right mainstem bronchus. Nasogastric tube is present. HEART / MEDIASTINUM: No significant abnormality. LUNGS / PLEURA: Diffuse bilateral airspace disease No pneumothorax. ADDITIONAL FINDINGS: No significant additional findings. IMPRESSION: Endotracheal tube has been placed and extends down the right mainstem bronchus. Diffuse bilateral air space disease is unchanged from earlier today. Multiple attempts were made to contact the CCU and the se were unsuccessful Signer Name: Earl Brown MD FACR Signed: 11/06/2019 11:57 PM Workstation Name: [id number]
--- NOTE | 2019-11-07 00:05 | XRay Report ---
ABDOMEN ONE VIEW FOR NASOGASTRIC TUBE PLACEMENT INDICATION / CLINICAL INFORMATION: NG TUBE. COMPARISON: None available. FINDINGS: An NG tube is present with the tip superimposed over the expected position of the gastric body Signer Name: Earl Brown MD FACR Signed: 11/07/2019 12:01 AM Workstation Name: [id number]
[2019-11-07] MEDS: ENOXAPARIN 40 MG/0.4 ML INJ SUB-Q SCH ×2 (02:14→22:27)
[2019-11-07] MEDS: INSULIN LISPRO 100 UNIT/ML SUB-Q SCH ×4 (02:15→18:09)
[2019-11-07] MEDS: fentaNYL DRIP Premix 2,000 MCG/100 ML BAG IV SCH ×3 (02:18→22:27)
[2019-11-07] MEDS ORDERED: SUCCINYLCHOLINE CHLORIDE 200 MG/10 ML INJ MDV ONE (02:32)
[2019-11-07 05:38] LABS: ABG Base Excess 1.3 mmol/L (-2.0-3.0); ABG HCO3 28.3 mmol/L (20.0-26.0); ABG Methemoglobin 0.8 % (0.0-1.5); ABG Oxygen Saturation 88.5 % (95.0-99.0); ABG PH 7.321 pH Units (7.350-7.450); ABG PO2 59.4 mm Hg (80.0-90.0)
[2019-11-07 06:08] LABS: Basophils # (Auto) 0.1 K/mm3 (0.0-0.1); Basophils % (Auto) 0.7 % (0.0-1.8); Eosinophils # (Auto) 0.1 K/mm3 (0.0-0.4); Eosinophils % (Auto) 0.6 % (0.0-4.3); Hematocrit 35.7 % (35.5-45.6); Hemoglobin 11.9 gm/dl (11.8-15.2); Lymphocytes % (Auto) 11.1 % (13.4-35.0); Mean Corpuscular HGB Conc 33 % (32-34); Mean Corpuscular Volume 92 fl (84-94); Monocytes # (Auto) 0.4 K/mm3 (0.0-0.8); Monocytes % (Auto) 4.1 % (0.0-7.3); Red Blood Count 3.86 M/mm3 (3.65-5.03); Red Cell Distribution Width 13.6 % (13.2-15.2)
[2019-11-07 06:15] LABS: Platelet Count 220 K/mm3 (140-440)
[2019-11-07 06:29] LABS: Alanine Aminotransferase 37 units/L (7-56); Albumin 2.8 g/dL (3.9-5); BUN/Creatinine Ratio 18; Blood Urea Nitrogen 24 mg/dL (9-20); Calcium 8.7 mg/dL (8.4-10.2); Hemolysis Index 3
[2019-11-07] MEDS: HYDROXYCHLOROQUINE 200 MG TAB PO SCH ×3 (08:30→19:52)
[2019-11-07] MEDS: INSULIN NPH/REGULAR 70/30 INJ SUB-Q SCH (08:30)
--- NOTE | 2019-11-07 08:35 | Progress Note ---
Assessment and Plan 54 y/o male with acute hypoxic respiratory failure, now intubated, concern for COVID 19 1. Daily CXR's. Will start tomorrow. 2. Will give lasix again today. Echo ordered by my partner. Hopeful to get this back later today. 3. Patient does carry a diagnosis of COPD. Not currently on any therapy. He has quit smoking. No wheezing right now. Hold on steroids. 4. ID has started patient on Plaquenil and monitoring Qt 5. Tachycardia has been prolong despite times were oxygenation was adequate. Now sedated and still tachy. Review EKG. May need cardiology consult, follow up echo. EKG from yesterday shows sinus tachycardia 6. Will attempt a trial of APRV today but will likely do a recruitment maneuver first with [id number] for about 30 seconds then switch to APRV. Asked RT to calculate plateau pressure to determine Phigh. Very Very Guarded prognosis. Will call his brother to update him. CCT 31 minutes. Subjective Date of service: 11/07/19 Principal diagnosis: r/o COVID Interval history: Patient electively intubated yesterday secondary to worsening hypoxemia. Successful with no acute adverse events. CXR post intubation shows good tube position. Bilateral infiltrates the same. No CXR this am. My partner gave an additional 20 of lasix last night. Patient negative 1150 overnight. Objective Vital Signs - 12hr 11/06/19 11/06/19 11/06/19 21:00 22:00 23:03 Temperature Pulse Rate 133 H 131 H 125 H Pulse Rate [ From Monitor] Respiratory 30 H 21 Rate Blood Pressure 143/91 136/91 O2 Sat by Pulse 90 93 94 Oximetry 11/06/19 11/07/19 11/07/19 23:18 00:00 01:00 Temperature 98.7 F Pulse Rate 135 H 122 H 120 H Pulse Rate [ 122 H From Monitor] Respiratory 17 20 21 Rate Blood Pressure 103/71 99/74 O2 Sat by Pulse 86 90 Oximetry 11/07/19 11/07/19 11/07/19 02:00 03:00 03:17 Temperature 98.6 F Pulse Rate 121 H 123 H Pulse Rate [ From Monitor] Respiratory 20 23 Rate Blood Pressure 106/75 109/75 O2 Sat by Pulse Oximetry 11/07/19 11/07/19 11/07/19 04:00 04:30 04:45 Temperature Pulse Rate 118 H 120 H 120 H Pulse Rate [ 118 H From Monitor] Respiratory 20 19 19 Rate Blood Pressure 101/70 112/75 105/77 O2 Sat by Pulse 92 84 Oximetry 11/07/19 11/07/19 11/07/19 05:00 05:15 05:30 Temperature Pulse Rate 121 H 120 H 119 H Pulse Rate [ From Monitor] Respiratory 17 19 21 Rate Blood Pressure 108/76 101/76 99/73 O2 Sat by Pulse 88 Oximetry 11/07/19 11/07/19 11/07/19 05:45 06:00 06:15 Temperature Pulse Rate 125 H 120 H 123 H Pulse Rate [ From Monitor] Respiratory 21 25 H 19 Rate Blood Pressure 95/69 100/70 99/71 O2 Sat by Pulse 89 Oximetry 11/07/19 11/07/19 11/07/19 06:30 06:45 07:00 Temperature Pulse Rate 122 H 122 H 121 H Pulse Rate [ From Monitor] Respiratory 20 21 21 Rate Blood Pressure 94/67 91/69 92/65 O2 Sat by Pulse 91 Oximetry 11/07/19 11/07/19 11/07/19 07:15 07:30 07:45 Temperature Pulse Rate 122 H 125 H 127 H Pulse Rate [ From Monitor] Respiratory 24 18 20 Rate Blood Pressure 102/66 109/71 104/78 O2 Sat by Pulse 95 Oximetry 11/07/19 11/07/19 08:00 08:15 Temperature 99.7 F H Pulse Rate 134 H 131 H Pulse Rate [ From Monitor] Respiratory 17 19 Rate Blood Pressure 104/78 141/96 O2 Sat by Pulse 92 94 Oximetry Constitutional: other (orally intubated and sedated) Eyes: non-icteric ENT: other (orally intubated) Neck: supple Effort: mildly labored Ascultation: Bilateral: rales Percussion: Bilateral: not dull Cardiovascular: other (appears to be sinus tach) Gastrointestinal: normoactive bowel sounds Integumentary: normal Extremities: no edema Neurologic: unable to assess CBC and BMP: 11/07/19 05:03 11/07/19 05:03 ABG, PT/INR, D-dimer: ABG ABG pH 7.321 pH Units (7.350-7.450) L 11/07/19 05:15 ABG pCO2 56.0 mm Hg 11/07/19 05:15 ABG pO2 59.4 mm Hg (80.0-90.0) L 11/07/19 05:15 ABG O2 Saturation 88.5 % (95.0-99.0) L 11/07/19 05:15 PT/INR, D-dimer PT 13.6 Sec. (12.2-14.9) 11/01/19 15:55 INR 1.03 (0.87-1.13) 11/01/19 15:55 D-Dimer 4435.56 ng/mlDDU (0-234) H 11/05/19 22:40 Abnormal lab findings: Abnormal Labs 11/01/19 11/01/19 11/01/19 15:55 15:55 17:25 Hgb 15.4 H RDW 13.1 L Plt Count 123 L Lymph % (Auto) 10.1 L Lymph # 0.7 L Seg Neutrophils % 83.4 H D-Dimer ABG pH ABG pO2 47.1 L ABG HCO3 ABG O2 Saturation 82.3 L ABG Base Excess -2.8 L ABG Hemoglobin Oxyhemoglobin 79.9 L Sodium 131 L Potassium Chloride 92.7 L Carbon Dioxide 19 L BUN 25 H Creatinine Glucose 414 H POC Glucose Calcium Phosphorus Ferritin AST Lactate Dehydrogenase C-Reactive Protein Albumin 3.6 L 11/02/19 11/02/19 11/02/19 04:58 04:58 23:46 Hgb RDW Plt Count 116 L Lymph % (Auto) 12.5 L Lymph # 0.8 L Seg Neutrophils % 80.6 H D-Dimer ABG pH ABG pO2 ABG HCO3 ABG O2 Saturation ABG Base Excess ABG Hemoglobin Oxyhemoglobin Sodium Potassium Chloride 97.9 L Carbon Dioxide BUN Creatinine Glucose 313 H POC Glucose 260 H Calcium 8.3 L Phosphorus Ferritin AST Lactate Dehydrogenase C-Reactive Protein Albumin 11/03/19 11/03/19 11/03/19 11:21 16:59 23:20 Hgb RDW Plt Count Lymph % (Auto) Lymph # Seg Neutrophils % D-Dimer ABG pH ABG pO2 ABG HCO3 ABG O2 Saturation ABG Base Excess ABG Hemoglobin Oxyhemoglobin Sodium Potassium Chloride Carbon Dioxide BUN Creatinine Glucose POC Glucose 251 H 202 H 304 H Calcium Phosphorus Ferritin AST Lactate Dehydrogenase C-Reactive Protein Albumin 11/04/19 11/04/19 11/04/19 04:50 04:50 08:54 Hgb RDW 13.0 L Plt Count Lymph % (Auto) Lymph # Seg Neutrophils % D-Dimer ABG pH ABG pO2 ABG HCO3 ABG O2 Saturation ABG Base Excess ABG Hemoglobin Oxyhemoglobin Sodium 134 L Potassium Chloride 90.8 L Carbon Dioxide 31 H D BUN Creatinine Glucose 236 H POC Glucose 230 H Calcium Phosphorus Ferritin AST Lactate Dehydrogenase C-Reactive Protein Albumin 11/04/19 11/04/19 11/04/19 12:42 16:48 22:23 Hgb RDW Plt Count Lymph % (Auto) Lymph # Seg Neutrophils % D-Dimer ABG pH ABG pO2 ABG HCO3 ABG O2 Saturation ABG Base Excess ABG Hemoglobin Oxyhemoglobin Sodium Potassium Chloride Carbon Dioxide BUN Creatinine Glucose POC Glucose 293 H 307 H 316 H Calcium Phosphorus Ferritin AST Lactate Dehydrogenase C-Reactive Protein Albumin 11/05/19 11/05/19 11/05/19 04:29 04:29 08:34 Hgb RDW 13.0 L Plt Count Lymph % (Auto) Lymph # Seg Neutrophils % D-Dimer ABG pH ABG pO2 ABG HCO3 ABG O2 Saturation ABG Base Excess ABG Hemoglobin Oxyhemoglobin Sodium 136 L Potassium 3.5 L Chloride 90.6 L Carbon Dioxide BUN Creatinine Glucose 249 H POC Glucose 277 H Calcium Phosphorus Ferritin AST Lactate Dehydrogenase C-Reactive Protein Albumin 11/05/19 11/05/19 11/05/19 11:17 16:13 22:13 Hgb RDW Plt Count Lymph % (Auto) Lymph # Seg Neutrophils % D-Dimer ABG pH ABG pO2 ABG HCO3 ABG O2 Saturation ABG Base Excess ABG Hemoglobin Oxyhemoglobin Sodium Potassium Chloride Carbon Dioxide BUN Creatinine Glucose POC Glucose 359 H 223 H 211 H Calcium Phosphorus Ferritin AST Lactate Dehydrogenase C-Reactive Protein Albumin 11/05/19 11/05/19 11/05/19 22:40 22:40 22:40 Hgb RDW Plt Count Lymph % (Auto) Lymph # Seg Neutrophils % D-Dimer 4435.56 H ABG pH ABG pO2 ABG HCO3 ABG O2 Saturation ABG Base Excess ABG Hemoglobin Oxyhemoglobin Sodium Potassium Chloride Carbon Dioxide BUN Creatinine Glucose POC Glucose Calcium Phosphorus Ferritin 3416.0 H AST Lactate Dehydrogenase 668 H C-Reactive Protein Albumin 11/05/19 11/06/19 11/06/19 22:40 10:02 14:10 Hgb RDW Plt Count Lymph % (Auto) Lymph # Seg Neutrophils % D-Dimer ABG pH ABG pO2 ABG HCO3 ABG O2 Saturation ABG Base Excess ABG Hemoglobin Oxyhemoglobin Sodium Potassium Chloride Carbon Dioxide BUN Creatinine Glucose POC Glucose 269 H 200 H Calcium Phosphorus Ferritin AST Lactate Dehydrogenase C-Reactive Protein 38.40 H Albumin 11/06/19 11/06/19 11/06/19 16:25 17:16 20:24 Hgb RDW Plt Count Lymph % (Auto) Lymph # Seg Neutrophils % D-Dimer ABG pH ABG pO2 50.5 L ABG HCO3 29.8 H ABG O2 Saturation 85.9 L ABG Base Excess 5.1 H ABG Hemoglobin 13.7 L Oxyhemoglobin 83.6 L Sodium 132 L Potassium Chloride 90.2 L Carbon Dioxide BUN Creatinine 0.7 L Glucose 222 H POC Glucose 194 H Calcium Phosphorus Ferritin AST Lactate Dehydrogenase C-Reactive Protein Albumin 11/06/19 11/07/19 11/07/19 23:30 02:24 05:03 Hgb RDW Plt Count Lymph % (Auto) 11.1 L Lymph # 1.0 L Seg Neutrophils % 83.5 H D-Dimer ABG pH ABG pO2 96.4 H ABG HCO3 ABG O2 Saturation ABG Base Excess ABG Hemoglobin 12.3 L Oxyhemoglobin 94.8 L Sodium Potassium Chloride Carbon Dioxide BUN Creatinine Glucose POC Glucose 298 H Calcium Phosphorus Ferritin AST Lactate Dehydrogenase C-Reactive Protein Albumin 11/07/19 11/07/19 11/07/19 05:03 05:15 06:28 Hgb RDW Plt Count Lymph % (Auto) Lymph # Seg Neutrophils % D-Dimer ABG pH 7.321 L ABG pO2 59.4 L ABG HCO3 28.3 H ABG O2 Saturation 88.5 L ABG Base Excess ABG Hemoglobin 11.8 L Oxyhemoglobin 86.1 L Sodium 134 L Potassium Chloride 91.6 L Carbon Dioxide BUN 24 H Creatinine Glucose 305 H POC Glucose 271 H Calcium Phosphorus 5.50 H D Ferritin AST 56 H Lactate Dehydrogenase C-Reactive Protein Albumin 2.8 L
[2019-11-07] MEDS ORDERED: SIMPLE SYRUP 15 ML FEEDTUBE PRN ×2 (08:52)
[2019-11-07] MEDS ORDERED: SODIUM BICARBONATE 325 MG TAB FEEDTUBE PRN (08:52)
[2019-11-07] MEDS ORDERED: LIPASE 10,500/PROTEASE 25,000/AMYLASE 43,750 (UNITS) DR CAP FEEDTUBE PRN (08:52)
[2019-11-07] MEDS ORDERED: FUROSEMIDE 20 MG/2 ML INJ IV ONE (09:00)
[2019-11-07] MEDS: ZINC SULFATE 220 MG CAP PO SCH (10:30)
[2019-11-07] MEDS: cefTRIAXone/NS 2 GM/100 ML 2 GM/100 ML BAG IV SCH (10:30)
[2019-11-07] MEDS: FAMOTIDINE 20 MG/2 ML INJ IV SCH ×2 (10:30→22:27)
[2019-11-07] MEDS ORDERED: TOCILIZUMAB 400 MG in SODIUM CHLORIDE 0.9% 100 ML IV ONE (11:00)
--- NOTE | 2019-11-07 11:13 | Progress Note ---
Assessment and Plan Cultures: Blood culture 11/01/2019 no growth to date A/P: 54-year-old man past medical history of hypertension, diabetes, GERD admitted with nausea and vomiting. #COVID-19 rule out/suspect severe COVID pneumonia: not better on plaquenil day 3. Inflammatory markers severely elevated - ddimer 4435, ferritin 3416, LDH 668, CRP 38, procal normal- high suspicion of cytokine release syndrome #Diarrhea: Patient reports it was intermittent and not that frequent. Likely due to COVID #Acute respiratory failure: now intubated #Diabetes: tight glycemic control for best outcomes. Recs: Start IV tocilizumab (Actemra) 400 mg Iv 1 (off-label use COVID) today (appreci ate pharm assistance) Continue hydroxychloroquine 200 mg PO increse to TID for 9 days with zinc 220 mg PO qday Check quantiferon for actermra risk for TB Continue COVID isolation precautions per protocol Continue ceftriaxone 2 gm IV q day repeat ferritin, LDH, D-Dimer, CRP today request IL-6 stat - Daily EKG for QT monitoring discussed with Dr Mellisa Pérez MD Infectious Diseases [facility] [facility] M [phone] O [phone] Subjective Date of service: 11/07/19 Principal diagnosis: r/o COVID Interval history: Remains critical ill, now intubated FiO2 90% p18, tachycardic on monitor Objective - Exam Narrative Exam: Constitutional: sedated on the vent Head, Ears, Nose: limited due to lack of PPE Neck: limited due to lack of PPE Oral: limited due to lack of PPE +ETT Cardiovascular: limited due to lack of PPE Respiratory: limited due to lack of PPE GI: limited due to lack of PPE Musculoskeletal: limited due to lack of PPE Skin: No rash or abscess Hem/Lymphatic: limited due to lack of PPE Psych:sedated Neurological: sedated - Constitutional Vitals: Vital Signs Temp Pulse Resp BP Pulse Ox 99.7 F H 129 H 19 105/71 94 11/07/19 08:00 11/07/19 09:13 11/07/19 08:15 11/07/19 09:13 11/07/19 09:13 Temperature -Last 24 Hours Temperature 99.7 F Temperature 98.6 F Temperature 98.7 F Temperature 100.3 F Temperature 100.3 F Temperature 99.9 F - Labs CBC & Chem 7: 11/07/19 05:03 11/07/19 05:03 Labs: Abnormal lab results 11/06/19 11/06/19 11/06/19 Range/Units 14:10 16:25 17:16 Lymph % (Auto) (13.4-35.0) % Lymph # (1.2-5.4) K/mm3 Seg Neutrophils % (40.0-70.0) % ABG pH (7.350-7.450) pH Units ABG pO2 50.5 L (80.0-90.0) mm Hg ABG HCO3 29.8 H (20.0-26.0) mmol/L ABG O2 Saturation 85.9 L (95.0-99.0) % ABG Base Excess 5.1 H (-2.0-3.0) mmol/L ABG Hemoglobin 13.7 L (14.0-18.0) gm/dl Oxyhemoglobin 83.6 L (95.0-99.0) % Sodium (137-145) mmol/L Chloride (98-107) mmol/L BUN (9-20) mg/dL Creatinine (0.8-1.5) mg/dL Glucose (75-100) mg/dL POC Glucose 200 H 194 H (70-105) Phosphorus (2.5-4.5) mg/dL AST (5-40) units/L Albumin (3.9-5) g/dL 11/06/19 11/06/19 11/07/19 Range/Units 20:24 23:30 02:24 Lymph % (Auto) (13.4-35.0) % Lymph # (1.2-5.4) K/mm3 Seg Neutrophils % (40.0-70.0) % ABG pH (7.350-7.450) pH Units ABG pO2 96.4 H (80.0-90.0) mm Hg ABG HCO3 (20.0-26.0) mmol/L ABG O2 Saturation (95.0-99.0) % ABG Base Excess (-2.0-3.0) mmol/L ABG Hemoglobin 12.3 L (14.0-18.0) gm/dl Oxyhemoglobin 94.8 L (95.0-99.0) % Sodium 132 L (137-145) mmol/L Chloride 90.2 L (98-107) mmol/L BUN (9-20) mg/dL Creatinine 0.7 L (0.8-1.5) mg/dL Glucose 222 H (75-100) mg/dL POC Glucose 298 H (70-105) Phosphorus (2.5-4.5) mg/dL AST (5-40) units/L Albumin (3.9-5) g/dL 11/07/19 11/07/19 11/07/19 Range/Units 05:03 05:03 05:15 Lymph % (Auto) 11.1 L (13.4-35.0) % Lymph # 1.0 L (1.2-5.4) K/mm3 Seg Neutrophils % 83.5 H (40.0-70.0) % ABG pH 7.321 L (7.350-7.450) pH Units ABG pO2 59.4 L (80.0-90.0) mm Hg ABG HCO3 28.3 H (20.0-26.0) mmol/L ABG O2 Saturation 88.5 L (95.0-99.0) % ABG Base Excess (-2.0-3.0) mmol/L ABG Hemoglobin 11.8 L (14.0-18.0) gm/dl Oxyhemoglobin 86.1 L (95.0-99.0) % Sodium 134 L (137-145) mmol/L Chloride 91.6 L (98-107) mmol/L BUN 24 H (9-20) mg/dL Creatinine (0.8-1.5) mg/dL Glucose 305 H (75-100) mg/dL POC Glucose (70-105) Phosphorus 5.50 H D (2.5-4.5) mg/dL AST 56 H (5-40) units/L Albumin 2.8 L (3.9-5) g/dL 11/07/19 Range/Units 06:28 Lymph % (Auto) (13.4-35.0) % Lymph # (1.2-5.4) K/mm3 Seg Neutrophils % (40.0-70.0) % ABG pH (7.350-7.450) pH Units ABG pO2 (80.0-90.0) mm Hg ABG HCO3 (20.0-26.0) mmol/L ABG O2 Saturation (95.0-99.0) % ABG Base Excess (-2.0-3.0) mmol/L ABG Hemoglobin (14.0-18.0) gm/dl Oxyhemoglobin (95.0-99.0) % Sodium (137-145) mmol/L Chloride (98-107) mmol/L BUN (9-20) mg/dL Creatinine (0.8-1.5) mg/dL Glucose (75-100) mg/dL POC Glucose 271 H (70-105) Phosphorus (2.5-4.5) mg/dL AST (5-40) units/L Albumin (3.9-5) g/dL
[2019-11-07 13:51] LABS: C-Reactive Protein 54.2 mg/dL (0.00-1.30)
--- NOTE | 2019-11-07 15:38 | Progress Note ---
Assessment and Plan Assessment and plan: Sepsis, possible coronavirus Start IV fluids, supportive care Status post Rocephin, azithromycin ER, hold further antibiotic Consult infectious disease, follow cultures To r/o COVID COVID screen was done, placed on droplet, contact precautions nasal swab was done. Result pending Acute resp failure On supplemental Oxygen now on high flow Oxygen Pulm following Bilateral pneumonia To r/o Covid 19 PUI Diarrhea Check stool for culture, C. difficile Ordered, Hypertension, now normotensive Continue to monitor Diabetes mellitus type 2 Check fingersticks, start sliding scale Hypokalemia Give k-dur Thrombocytopenia, monitor DVT prophylaxis Full code status 11/03/19 patient with bilateral pneumonia. to r/o COVID. Consulted pulm for worsening resp failure, on high flow Oxygen 11/04/19 Patient with bilat pneumonia, PUI to r/o Covid. Now on HFNC at 40 l/min 11/05/19 Patient still on HFNC at 40 l/min. Give potassium supplement. 11/06/19 he is still very ill, shortness of breath on, has acute resp failure on high flow oxygen . Covid test done. Result pending 11/07/19 Still on mechanical vent, AC mode--rate 25, FiO2 70%, peep 18, critically ill The high probability of a clinically significant, sudden or life threatening deterioration of the [resp ] system(s) required my full and direct attention, intervention and personal management. The aggregate critical care time was [32] minutes. This time is in addition to time spent performing reported procedures but includes the following: [x] Data Review and interpretation [x] Patient assessment and monitoring of vital signs [x] Documentation [x] Medication orders and management History Interval history: No new issues Hospitalist Physical - Constitutional Vitals: Temp Pulse Resp BP Pulse Ox 99.7 F H 128 H 19 115/82 96 11/07/19 08:00 11/07/19 12:14 11/07/19 08:15 11/07/19 12:14 11/07/19 12:14 General appearance: Present: no acute distress, well-nourished - EENT Eyes: Present: PERRL, EOM intact ENT: hearing intact, clear oral mucosa, dentition normal - Neck Neck: Present: supple, normal ROM - Respiratory Respiratory effort: normal Respiratory: bilateral: CTA - Cardiovascular Rhythm: regular Heart Sounds: Present: S1 & S2. Absent: gallop, rub - Extremities Extremities: no ischemia, No edema, Full ROM - Abdominal General gastrointestinal: soft, non-tender, non-distended, normal bowel sounds - Integumentary Integumentary: Present: clear, warm, dry - Neurologic Neurologic: CNII-XII intact, moves all extremities Results - Labs CBC & Chem 7: 11/07/19 05:03 11/07/19 05:03 Labs: Laboratory Last Values WBC 9.3 K/mm3 (4.5-11.0) 11/07/19 05:03 RBC 3.86 M/mm3 (3.65-5.03) 11/07/19 05:03 Hgb 11.9 gm/dl (11.8-15.2) 11/07/19 05:03 Hct 35.7 % (35.5-45.6) 11/07/19 05:03 MCV 92 fl (84-94) 11/07/19 05:03 MCH 31 pg (28-32) 11/07/19 05:03 MCHC 33 % (32-34) 11/07/19 05:03 RDW 13.6 % (13.2-15.2) 11/07/19 05:03 Plt Count 220 K/mm3 (140-440) 11/07/19 05:03 Lymph % (Auto) 11.1 % (13.4-35.0) L 11/07/19 05:03 [place] % (Auto) 4.1 % (0.0-7.3) 11/07/19 05:03 Eos % (Auto) 0.6 % (0.0-4.3) 11/07/19 05:03 Baso % (Auto) 0.7 % (0.0-1.8) 11/07/19 05:03 Lymph # 1.0 K/mm3 (1.2-5.4) L 11/07/19 05:03 [place] # 0.4 K/mm3 (0.0-0.8) 11/07/19 05:03 Eos # 0.1 K/mm3 (0.0-0.4) 11/07/19 05:03 Baso # 0.1 K/mm3 (0.0-0.1) 11/07/19 05:03 Seg Neutrophils % 83.5 % (40.0-70.0) H 11/07/19 05:03 Seg Neutrophils # 7.7 K/mm3 (1.8-7.7) 11/07/19 05:03 PT 13.6 Sec. (12.2-14.9) 11/01/19 15:55 INR 1.03 (0.87-1.13) 11/01/19 15:55 APTT 24.2 Sec. (24.2-36.6) 11/01/19 15:55 D-Dimer > 40574 ng/mlDDU (0-234) H 11/07/19 11:49 ABG pH 7.321 pH Units (7.350-7.450) L 11/07/19 05:15 ABG pCO2 56.0 mm Hg 11/07/19 05:15 ABG pO2 59.4 mm Hg (80.0-90.0) L 11/07/19 05:15 ABG HCO3 28.3 mmol/L (20.0-26.0) H 11/07/19 05:15 ABG O2 Saturation 88.5 % (95.0-99.0) L 11/07/19 05:15 ABG O2 Content 14.3 (0.0-44) 11/07/19 05:15 ABG Base Excess 1.3 mmol/L (-2.0-3.0) 11/07/19 05:15 ABG Hemoglobin 11.8 gm/dl (14.0-18.0) L 11/07/19 05:15 ABG Carboxyhemoglobin 1.9 % (0.0-5.0) 11/07/19 05:15 ABG Methemoglobin 0.8 % (0.0-1.5) 11/07/19 05:15 Oxyhemoglobin 86.1 % (95.0-99.0) L 11/07/19 05:15 FiO2 100 % 11/07/19 05:15 Sodium 134 mmol/L (137-145) L 11/07/19 05:03 Potassium 5.0 mmol/L (3.6-5.0) 11/07/19 05:03 Chloride 91.6 mmol/L (98-107) L 11/07/19 05:03 Carbon Dioxide 26 mmol/L (22-30) 11/07/19 05:03 Anion Gap 21 mmol/L 11/07/19 05:03 BUN 24 mg/dL (9-20) H 11/07/19 05:03 Creatinine 1.3 mg/dL (0.8-1.5) D 11/07/19 05:03 Estimated GFR > 60 ml/min 11/07/19 05:03 BUN/Creatinine Ratio 18 % 11/07/19 05:03 Glucose 305 mg/dL (75-100) H 11/07/19 05:03 POC Glucose 240 (70-105) H 11/07/19 11:55 Calcium 8.7 mg/dL (8.4-10.2) 11/07/19 05:03 Phosphorus 5.50 mg/dL (2.5-4.5) H D 11/07/19 05:03 Magnesium 2.10 mg/dL (1.7-2.3) 11/07/19 05:03 Ferritin > 2000.0 ng/mL (13.0-400.0) H 11/07/19 11:49 Total Bilirubin 0.90 mg/dL (0.1-1.2) 11/07/19 05:03 AST 56 units/L (5-40) H 11/07/19 05:03 ALT 37 units/L (7-56) 11/07/19 05:03 Alkaline Phosphatase 91 units/L (35-129) 11/07/19 05:03 Lactate Dehydrogenase 777 units/L (91-180) H 11/07/19 11:49 Total Creatine Kinase 161 units/L (55-170) 11/01/19 15:55 CK-MB (CK-2) < 1.0 ng/mL (0.0-4.0) 11/01/19 15:55 CK-MB (CK-2) Rel Index 0.6 (0-4) 11/01/19 15:55 C-Reactive Protein 54.20 mg/dL (0.00-1.30) H 11/07/19 11:49 Total Protein 7.4 g/dL (6.3-8.2) 11/07/19 05:03 Albumin 2.8 g/dL (3.9-5) L 11/07/19 05:03 Albumin/Globulin Ratio 0.6 % 11/07/19 05:03 Lipase 28 units/L (13-60) 11/01/19 15:55 Procalcitonin 0.17 ng/mL (<0.15) 11/05/19 22:40 TSH 0.736 mlU/mL (0.270-4.200) 11/01/19 15:55 Free T4 1.18 ng/dL (0.76-1.46) 11/01/19 15:55 Urine Color Yellow (Yellow) 11/01/19 17:02 Urine Turbidity Clear (Clear) 11/01/19 17:02 Urine pH 5.0 (5.0-7.0) 11/01/19 17:02 Ur Specific [place] 1.027 (1.003-1.030) 11/01/19 17:02 Urine Protein 30 mg/dl mg/dL (Negative) 11/01/19 17:02 Urine Glucose (UA) >=500 mg/dL (Negative) 11/01/19 17:02 Urine Ketones 20 mg/dL (Negative) 11/01/19 17:02 Urine Blood Neg (Negative) 11/01/19 17:02 Urine Nitrite Neg (Negative) 11/01/19 17:02 Ur Reducing Substances Not Reportable 11/01/19 17:02 Urine Bilirubin Neg (Negative) 11/01/19 17:02 Urine Ictotest Not Reportable 11/01/19 17:02 Urine Urobilinogen < 2.0 mg/dL (<2.0) 11/01/19 17:02 Ur Leukocyte Esterase Neg (Negative) 11/01/19 17:02 Urine WBC (Auto) 1.0 /HPF (0.0-6.0) 11/01/19 17:02 Urine RBC (Auto) 3.0 /HPF (0.0-6.0) 11/01/19 17:02 Urine Mucus Few /HPF 11/01/19 17:02 Influenza A (Rapid) Negative (Negative) 11/01/19 17:23 Influenza B (Rapid) Negative (Negative) 11/01/19 17:23 Microbiology: Microbiology 11/06/19 23:47 Tracheal Aspirate Sputum Culture - Preliminary 11/01/19 18:26 Peripheral/Venous Blood Culture - Final NO GROWTH AFTER 5 DAYS 11/01/19 18:26 Peripheral/Venous Blood Culture - Final NO GROWTH AFTER 5 DAYS [place]/IV: Voiding Method Urinal IV Catheter Type [Right INT / Saline Lock Forearm] IV Catheter Type [Left Hand] INT / Saline Lock Active Medications - Current Medications Current Medications: Generic Name Dose Route Start Last Admin Trade Name Freq PRN Reason Stop Dose Admin Acetaminophen 650 mg 11/02/19 00:25 11/05/19 17:55 Tylenol PO 650 mg Q4H PRN Administration Pain MILD(1-3)/Fever >100.5/CARDENAS Lipase/Protease/Amylase 1 each 11/07/19 08:[address] 10,500 Unit FEEDTUBE PRN PRN For Clogged Feeding Tube Dextrose 0 ml 11/02/19 00:25 D50w (25gm) Syringe IV Q30MIN PRN Hypoglycemia Protocol Enoxaparin Sodium 40 mg 11/05/19 22:00 11/07/19 02:14 Enoxaparin SUB-Q 40 mg QDAY@2200 DUTCH Administration Famotidine 20 mg 11/07/19 10:00 11/07/19 10:30 Pepcid IV 20 mg BID DUTCH Administration Fentanyl 50 mcg 11/06/19 22:35 Sublimaze IV Q10MIN PRN ANALGESIA Hydrophilic Ointment 1 applic 11/06/19 22:35 Vaseline Lip Therapy TP Q2HR PRN Dry Lips Hydroxychloroquine Sulfate 200 mg 11/06/19 20:00 11/07/19 08:30 Plaquenil PO 11/15/19 19:59 200 mg TID DUTCH Administration Ceftriaxone Sodium 2 gm in 100 mls @ 200 mls/hr 11/03/19 11:00 11/07/19 11:00 Rocephin/Ns 2 Gm/100 Ml IV Infused Q24HR DUTCH Infusion Protocol Fentanyl Citrate 2,000 mcg in 100 mls @ 5.38 mls/hr 11/06/19 23:00 11/07/19 14:24 Fentanyl Drip Premix IV 2 mcg/kg/hr TITR DUTCH 10.759 mls/hr Administration Protocol 1 MCG/KG/HR Propofol 1,000 mg in 100 mls @ 3.228 mls/hr 11/06/19 23:00 11/07/19 14:26 Diprivan 10 Mg/Ml IV 30 mcg/kg/min TITR DUTCH 19.367 mls/hr Administration Protocol 5 MCG/KG/MIN Insulin Glargine 15 units 11/07/19 22:00 Lantus SUB-Q QHS DUTCH Insulin Human Lispro 0 unit 11/07/19 06:00 11/07/19 12:30 Humalog SUB-Q 4 unit Q6HR DUTCH Administration Protocol Multi-Ingred Cream/Lotion/Oil/Oint 1 applic 11/06/19 22:35 Artificial Tears Ophth Oint OU Q4HR PRN Dry Eye(s) Ondansetron HCl 4 mg 11/02/19 00:25 Zofran IV Q8H PRN Nausea And Vomiting Phenol 1 spray 11/01/19 23:05 11/02/19 02:37 Chloraseptic MM 1 spray PRN PRN Administration Sore Throat Simple Syrup 15 ml 11/07/19 08:52 Simple Syrup FEEDTUBE PRN PRN Hypoglycemia Simple Syrup 30 ml 11/07/19 08:52 Simple Syrup FEEDTUBE PRN PRN Hypoglycemia Sodium Bicarbonate 325 mg 11/07/19 08:52 Sodium Bicarbonate FEEDTUBE PRN PRN For Clogged Feeding Tube Sodium Chloride 10 ml 11/02/19 10:00 11/07/19 10:30 Sodium Chloride Flush Syringe 10 Ml IV 10 ml BID DUTCH Administration Sodium Chloride 10 ml 11/02/19 00:25 Sodium Chloride Flush Syringe 10 Ml IV PRN PRN LINE FLUSH Zinc Sulfate 220 mg 11/05/19 16:00 11/07/19 10:30 Zinc Sulfate PO 220 mg QDAY DUTCH Administration Nutrition/Malnutrition Assess - Dietary Evaluation Nutrition/Malnutrition Findings: Nutrition Notes Start: 11/07/19 08:50 Freq: Status: Active Protocol: Document 11/07/19 08:50 LM (Rec: 11/07/19 09:03 LM [id number]) Nutrition Notes Need for Assessment generated from: MD Order,music assistant,MST Initial or Follow up Assessment Current Diagnosis COPD,Diabetes,Hypertension, Respiratory Failure Other Pertinent Diagnosis suspected COVID-19, pneu Current Diet Nepro 1.8 at 35 ml/hr Labs/Tests Na 134 BG 305 Phos 5.5 K 5 Pertinent Medications Humalog Propofol at 3.228 ml/hr (85 kcal) Height 6 ft 1 in Weight 107.592 kg [place] Body Weight (kg) 83.63 BMI 31.3 Weight Status Obese Subjective/Other Information MD consult to evaluate nutritional intake and RN screen for MST. Pt on vent. RN called requesting TF order. Burn Absent Trauma Absent Difficulty In Swallowing Current % PO Negligible Minimum of two criteria No #1 Nutrition Diagnosis Inadequate oral intake Etiology Mechanical vent As Evidenced by Signs and Symptoms Pt unable to consume PO Is patient on ventilator? Yes Is Patient Ambulatory and/or Out of Bed No REE-([facility]-confined to bed) 2367.648 Kcal/Kg value to use for calculation 19 Approximate Energy Requirements Using 2044 kcal/Kg Calculation Used for Recommendations Kcal/kg Additional Notes Protein: 168g (>/=2g/kg using IBW 84kg) Fluid: 1 ml/kcal or per MD Nutrition Intervention Change Diet Order: Continue TF Nutrition Support: Nepro 1.8 at 50 ml/hr Flush 100 ml q4h for hyponatremia Flush 200 ml q4h once hyponatremia resolves Kcal 2,160 Protein (gm) 97 Fluid (mL) 872 Goal #1 TF tolerance Goal #2 Meet at least 75% of energy and protein needs via TF Anticipated Discharge Needs: unable to determine at this time. Follow-Up By: 11/09/19 Additional Comments F/U for TF tolerance
[2019-11-07] MEDS ORDERED: INSULIN GLARGINE 100 UNITS/ML SUB-Q SCH (22:00)
[2019-11-08] MEDS: INSULIN LISPRO 100 UNIT/ML SUB-Q SCH ×2 (00:16→06:13)
[2019-11-08 02:06] LABS: ABG Base Excess 0.8 mmol/L (-2.0-3.0); ABG HCO3 29.8 mmol/L (20.0-26.0); ABG Oxygen Saturation 91.3 % (95.0-99.0); ABG PCO2 71.8 mm Hg; ABG PH 7.236 pH Units (7.350-7.450); ABG PO2 71.2 mm Hg (80.0-90.0)
--- NOTE | 2019-11-08 04:34 | XRay Report ---
CHEST 1 VIEW INDICATION / CLINICAL INFORMATION: follow up respiratory failure. COMPARISON: 11/06/2019 FINDINGS: SUPPORT DEVICES: Endotracheal tube, nasogastric tube, left-sided PICC line HEART / MEDIASTINUM: No significant abnormality. LUNGS / PLEURA: Patchy bilateral airspace disease No pneumothorax. ADDITIONAL FINDINGS: No significant additional findings. IMPRESSION: Airspace disease in the left lower lung has improved since 11/06/2019. Patchy airspace disease is now seen diffusely in both lungs. A PICC line has been placed and curls distally possibly into the azygos vein Signer Name: Earl Brown MD FACR Signed: 11/08/2019 4:30 AM Workstation Name: [id number]
[2019-11-08] MEDS ORDERED: NORepinephrine/NS 4 MG-250 ML 4 MG/250 ML BAG IV ONE (04:44)
[2019-11-08] MEDS ORDERED: NORepinephrine/NS 4 MG-250 ML 4 MG/250 ML BAG IV SCH (04:45)
--- NOTE | 2019-11-08 09:29 | Progress Note ---
Assessment and Plan 54 y/o male with acute hypoxic respiratory failure, now intubated, concern for COVID 19 1. Daily CXR's. Today actually improved. 2. Hold on lasix therapy today. No chemistry drawn. Will check tomorrow and pending results, lasix again then. 3. Patient does carry a diagnosis of COPD. Not currently on any therapy. He has quit smoking. No wheezing right now. No steroids given positive COVID diagnosis as studies suggest patient's do worse with steroids. 4. ID has started patient on Plaquenil and monitoring Qt, will assess today. 5. Tachycardia has been prolong despite times were oxygenation was adequate. Now sedated and still tachy. Review EKG. May need cardiology consult, follow up echo. EKG from yesterday shows sinus tachycardia. Echo will not be done secondary to COVID status. Suggest Cards help with rate control. 6. Did not do APRV or recruitment maneuver yesterday as we had him down to 85%. Back up to 90 this am but PaO2 good. Will continue to wean. If no able to get lower than 80%, will try recruitment maneuver then APRV. Very Very Guarded prognosis. Will call his brother to update him. CCT 31 minutes. Subjective Date of service: 11/08/19 Principal diagnosis: r/o COVID Interval history: COVID test came back positive this am. Scanned into computer. Did get IL6 inhibtor yesterday. PaO2 this am is 71 on 90%. Sedated on the vent. No visitors secondary to COVID outbreak. Good Urine output. Remainder is negative Objective Vital Signs - 12hr 11/07/19 11/07/19 11/07/19 21:30 21:45 22:00 Temperature Pulse Rate 124 H 124 H 125 H Pulse Rate [ From Monitor] Respiratory 25 H 25 H 27 H Rate Blood Pressure 108/72 113/72 118/76 O2 Sat by Pulse 91 91 92 Oximetry 11/07/19 11/07/19 11/07/19 22:15 22:30 22:45 Temperature Pulse Rate 125 H 126 H 124 H Pulse Rate [ From Monitor] Respiratory 26 H 23 19 Rate Blood Pressure 115/71 114/74 109/72 O2 Sat by Pulse 92 93 96 Oximetry 11/07/19 11/07/19 11/07/19 23:00 23:04 23:15 Temperature Pulse Rate 125 H 126 H 126 H Pulse Rate [ From Monitor] Respiratory 17 25 H 21 Rate Blood Pressure 112/72 112/72 128/75 O2 Sat by Pulse 93 93 97 Oximetry 11/07/19 11/07/19 11/08/19 23:30 23:45 00:00 Temperature 98.8 F Pulse Rate 126 H 126 H 126 H Pulse Rate [ 126 H From Monitor] Respiratory 20 18 21 Rate Blood Pressure 112/74 115/78 122/76 O2 Sat by Pulse 98 95 93 Oximetry 11/08/19 11/08/19 11/08/19 00:15 00:30 00:45 Temperature Pulse Rate 125 H 126 H 127 H Pulse Rate [ From Monitor] Respiratory 18 25 H 18 Rate Blood Pressure 120/71 119/76 111/74 O2 Sat by Pulse 94 94 87 Oximetry 11/08/19 11/08/19 11/08/19 01:00 01:15 01:30 Temperature Pulse Rate 126 H 126 H 127 H Pulse Rate [ From Monitor] Respiratory 23 22 22 Rate Blood Pressure 118/75 122/74 119/75 O2 Sat by Pulse 93 93 92 Oximetry 11/08/19 11/08/19 11/08/19 01:45 02:00 02:15 Temperature Pulse Rate 128 H 128 H 128 H Pulse Rate [ From Monitor] Respiratory 22 25 H 25 H Rate Blood Pressure 126/75 126/75 116/78 O2 Sat by Pulse 93 90 94 Oximetry 11/08/19 11/08/19 11/08/19 03:29 04:00 04:36 Temperature 97.7 F Pulse Rate 128 H 126 H 126 H Pulse Rate [ 126 H From Monitor] Respiratory 31 H Rate Blood Pressure 98/75 96/62 O2 Sat by Pulse 94 86 86 Oximetry 11/08/19 11/08/19 11/08/19 04:38 04:40 04:42 Temperature Pulse Rate 102 H 91 H 100 H Pulse Rate [ From Monitor] Respiratory 31 H 30 H 30 H Rate Blood Pressure 62/32 55/21 53/29 O2 Sat by Pulse 87 90 87 Oximetry 11/08/19 11/08/19 11/08/19 04:44 04:46 04:48 Temperature Pulse Rate 124 H 139 H 134 H Pulse Rate [ From Monitor] Respiratory 29 H 24 29 H Rate Blood Pressure 96/61 162/85 145/77 O2 Sat by Pulse 92 87 89 Oximetry 11/08/19 11/08/19 11/08/19 04:50 04:52 04:54 Temperature Pulse Rate 132 H 132 H 133 H Pulse Rate [ From Monitor] Respiratory 23 24 30 H Rate Blood Pressure 123/72 125/68 125/68 O2 Sat by Pulse 90 91 90 Oximetry 11/08/19 11/08/19 11/08/19 04:56 04:58 05:00 Temperature Pulse Rate 126 H 127 H 124 H Pulse Rate [ From Monitor] Respiratory 28 H 28 H 25 H Rate Blood Pressure 125/68 125/68 87/56 O2 Sat by Pulse 91 91 90 Oximetry 11/08/19 11/08/19 11/08/19 05:02 05:04 05:06 Temperature Pulse Rate 117 H 123 H 126 H Pulse Rate [ From Monitor] Respiratory 26 H 22 25 H Rate Blood Pressure 87/56 87/56 92/56 O2 Sat by Pulse 91 90 91 Oximetry 11/08/19 11/08/19 11/08/19 05:08 05:10 05:12 Temperature Pulse Rate 130 H 132 H 131 H Pulse Rate [ From Monitor] Respiratory 24 22 26 H Rate Blood Pressure 110/59 143/77 143/77 O2 Sat by Pulse 91 93 94 Oximetry 11/08/19 11/08/19 11/08/19 05:14 05:16 05:18 Temperature Pulse Rate 131 H 131 H 132 H Pulse Rate [ From Monitor] Respiratory 27 H 22 22 Rate Blood Pressure 143/77 135/81 135/81 O2 Sat by Pulse 94 95 96 Oximetry 11/08/19 11/08/19 11/08/19 05:20 05:22 05:24 Temperature Pulse Rate 133 H 132 H 132 H Pulse Rate [ From Monitor] Respiratory 21 22 22 Rate Blood Pressure 128/77 128/77 128/77 O2 Sat by Pulse 95 95 95 Oximetry 11/08/19 11/08/19 11/08/19 05:26 05:28 05:30 Temperature Pulse Rate 132 H 132 H 132 H Pulse Rate [ From Monitor] Respiratory 20 28 H 26 H Rate Blood Pressure 133/72 133/72 130/78 O2 Sat by Pulse 95 95 95 Oximetry 11/08/19 11/08/19 11/08/19 05:32 05:34 05:36 Temperature Pulse Rate 133 H 132 H 133 H Pulse Rate [ From Monitor] Respiratory 20 27 H 27 H Rate Blood Pressure 130/78 130/78 122/71 O2 Sat by Pulse 95 95 95 Oximetry 11/08/19 11/08/19 11/08/19 05:38 05:40 05:42 Temperature Pulse Rate 133 H 133 H 133 H Pulse Rate [ From Monitor] Respiratory 26 H 28 H 20 Rate Blood Pressure 122/71 120/68 120/68 O2 Sat by Pulse 95 94 95 Oximetry 11/08/19 11/08/19 11/08/19 05:44 05:46 05:48 Temperature Pulse Rate 133 H 134 H 133 H Pulse Rate [ From Monitor] Respiratory 23 29 H 21 Rate Blood Pressure 120/68 117/66 117/66 O2 Sat by Pulse 94 95 94 Oximetry 11/08/19 11/08/19 11/08/19 05:50 05:52 05:54 Temperature Pulse Rate 133 H 134 H 134 H Pulse Rate [ From Monitor] Respiratory 20 26 H 25 H Rate Blood Pressure 112/68 112/68 112/68 O2 Sat by Pulse 95 95 94 Oximetry 11/08/19 11/08/19 11/08/19 05:56 05:58 06:00 Temperature Pulse Rate 134 H 134 H 134 H Pulse Rate [ From Monitor] Respiratory 24 29 H 27 H Rate Blood Pressure 111/70 122/71 120/66 O2 Sat by Pulse 95 95 95 Oximetry 11/08/19 11/08/19 11/08/19 06:02 06:04 06:06 Temperature Pulse Rate 134 H 134 H 134 H Pulse Rate [ From Monitor] Respiratory 27 H 26 H 29 H Rate Blood Pressure 120/66 120/66 121/68 O2 Sat by Pulse 95 94 95 Oximetry 11/08/19 11/08/19 11/08/19 06:08 06:10 06:12 Temperature Pulse Rate 134 H 134 H 134 H Pulse Rate [ From Monitor] Respiratory 23 29 H 15 Rate Blood Pressure 121/68 122/65 122/65 O2 Sat by Pulse 95 95 95 Oximetry 11/08/19 11/08/19 11/08/19 06:14 08:00 09:15 Temperature 99.2 F Pulse Rate 134 H 105 H Pulse Rate [ From Monitor] Respiratory 29 H Rate Blood Pressure 122/65 89/56 O2 Sat by Pulse 96 95 Oximetry Constitutional: other (orally intubated and sedated) Eyes: non-icteric ENT: other (orally intubated) Neck: supple Effort: mildly labored Ascultation: Bilateral: rales Percussion: Bilateral: not dull Cardiovascular: other (appears to be sinus tach) Gastrointestinal: normoactive bowel sounds Integumentary: normal Extremities: no edema Neurologic: unable to assess CBC and BMP: 11/07/19 05:03 11/07/19 05:03 ABG, PT/INR, D-dimer: ABG ABG pH 7.236 pH Units (7.350-7.450) L 11/08/19 01:33 ABG pCO2 71.8 mm Hg 11/08/19 01:33 ABG pO2 71.2 mm Hg (80.0-90.0) L 11/08/19 01:33 ABG O2 Saturation 91.3 % (95.0-99.0) L 11/08/19 01:33 PT/INR, D-dimer PT 13.6 Sec. (12.2-14.9) 11/01/19 15:55 INR 1.03 (0.87-1.13) 11/01/19 15:55 D-Dimer > 91243 ng/mlDDU (0-234) H 11/07/19 11:49 Abnormal lab findings: Abnormal Labs 11/01/19 11/01/19 11/01/19 15:55 15:55 17:25 Hgb 15.4 H RDW 13.1 L Plt Count 123 L Lymph % (Auto) 10.1 L Lymph # 0.7 L Seg Neutrophils % 83.4 H D-Dimer ABG pH ABG pO2 47.1 L ABG HCO3 ABG O2 Saturation 82.3 L ABG Base Excess -2.8 L ABG Hemoglobin Oxyhemoglobin 79.9 L Sodium 131 L Potassium Chloride 92.7 L Carbon Dioxide 19 L BUN 25 H Creatinine Glucose 414 H POC Glucose Calcium Phosphorus Ferritin AST Lactate Dehydrogenase C-Reactive Protein Albumin 3.6 L 11/02/19 11/02/19 11/02/19 04:58 04:58 23:46 Hgb RDW Plt Count 116 L Lymph % (Auto) 12.5 L Lymph # 0.8 L Seg Neutrophils % 80.6 H D-Dimer ABG pH ABG pO2 ABG HCO3 ABG O2 Saturation ABG Base Excess ABG Hemoglobin Oxyhemoglobin Sodium Potassium Chloride 97.9 L Carbon Dioxide BUN Creatinine Glucose 313 H POC Glucose 260 H Calcium 8.3 L Phosphorus Ferritin AST Lactate Dehydrogenase C-Reactive Protein Albumin 11/03/19 11/03/19 11/03/19 11:21 16:59 23:20 Hgb RDW Plt Count Lymph % (Auto) Lymph # Seg Neutrophils % D-Dimer ABG pH ABG pO2 ABG HCO3 ABG O2 Saturation ABG Base Excess ABG Hemoglobin Oxyhemoglobin Sodium Potassium Chloride Carbon Dioxide BUN Creatinine Glucose POC Glucose 251 H 202 H 304 H Calcium Phosphorus Ferritin AST Lactate Dehydrogenase C-Reactive Protein Albumin 11/04/19 11/04/19 11/04/19 04:50 04:50 08:54 Hgb RDW 13.0 L Plt Count Lymph % (Auto) Lymph # Seg Neutrophils % D-Dimer ABG pH ABG pO2 ABG HCO3 ABG O2 Saturation ABG Base Excess ABG Hemoglobin Oxyhemoglobin Sodium 134 L Potassium Chloride 90.8 L Carbon Dioxide 31 H D BUN Creatinine Glucose 236 H POC Glucose 230 H Calcium Phosphorus Ferritin AST Lactate Dehydrogenase C-Reactive Protein Albumin 11/04/19 11/04/19 11/04/19 12:42 16:48 22:23 Hgb RDW Plt Count Lymph % (Auto) Lymph # Seg Neutrophils % D-Dimer ABG pH ABG pO2 ABG HCO3 ABG O2 Saturation ABG Base Excess ABG Hemoglobin Oxyhemoglobin Sodium Potassium Chloride Carbon Dioxide BUN Creatinine Glucose POC Glucose 293 H 307 H 316 H Calcium Phosphorus Ferritin AST Lactate Dehydrogenase C-Reactive Protein Albumin 11/05/19 11/05/19 11/05/19 04:29 04:29 08:34 Hgb RDW 13.0 L Plt Count Lymph % (Auto) Lymph # Seg Neutrophils % D-Dimer ABG pH ABG pO2 ABG HCO3 ABG O2 Saturation ABG Base Excess ABG Hemoglobin Oxyhemoglobin Sodium 136 L Potassium 3.5 L Chloride 90.6 L Carbon Dioxide BUN Creatinine Glucose 249 H POC Glucose 277 H Calcium Phosphorus Ferritin AST Lactate Dehydrogenase C-Reactive Protein Albumin 11/05/19 11/05/19 11/05/19 11:17 16:13 22:13 Hgb RDW Plt Count Lymph % (Auto) Lymph # Seg Neutrophils % D-Dimer ABG pH ABG pO2 ABG HCO3 ABG O2 Saturation ABG Base Excess ABG Hemoglobin Oxyhemoglobin Sodium Potassium Chloride Carbon Dioxide BUN Creatinine Glucose POC Glucose 359 H 223 H 211 H Calcium Phosphorus Ferritin AST Lactate Dehydrogenase C-Reactive Protein Albumin 11/05/19 11/05/19 11/05/19 22:40 22:40 22:40 Hgb RDW Plt Count Lymph % (Auto) Lymph # Seg Neutrophils % D-Dimer 4435.56 H ABG pH ABG pO2 ABG HCO3 ABG O2 Saturation ABG Base Excess ABG Hemoglobin Oxyhemoglobin Sodium Potassium Chloride Carbon Dioxide BUN Creatinine Glucose POC Glucose Calcium Phosphorus Ferritin 3416.0 H AST Lactate Dehydrogenase 668 H C-Reactive Protein Albumin 11/05/19 11/06/19 11/06/19 22:40 10:02 14:10 Hgb RDW Plt Count Lymph % (Auto) Lymph # Seg Neutrophils % D-Dimer ABG pH ABG pO2 ABG HCO3 ABG O2 Saturation ABG Base Excess ABG Hemoglobin Oxyhemoglobin Sodium Potassium Chloride Carbon Dioxide BUN Creatinine Glucose POC Glucose 269 H 200 H Calcium Phosphorus Ferritin AST Lactate Dehydrogenase C-Reactive Protein 38.40 H Albumin 11/06/19 11/06/19 11/06/19 16:25 17:16 20:24 Hgb RDW Plt Count Lymph % (Auto) Lymph # Seg Neutrophils % D-Dimer ABG pH ABG pO2 50.5 L ABG HCO3 29.8 H ABG O2 Saturation 85.9 L ABG Base Excess 5.1 H ABG Hemoglobin 13.7 L Oxyhemoglobin 83.6 L Sodium 132 L Potassium Chloride 90.2 L Carbon Dioxide BUN Creatinine 0.7 L Glucose 222 H POC Glucose 194 H Calcium Phosphorus Ferritin AST Lactate Dehydrogenase C-Reactive Protein Albumin 11/06/19 11/07/19 11/07/19 23:30 02:24 05:03 Hgb RDW Plt Count Lymph % (Auto) 11.1 L Lymph # 1.0 L Seg Neutrophils % 83.5 H D-Dimer ABG pH ABG pO2 96.4 H ABG HCO3 ABG O2 Saturation ABG Base Excess ABG Hemoglobin 12.3 L Oxyhemoglobin 94.8 L Sodium Potassium Chloride Carbon Dioxide BUN Creatinine Glucose POC Glucose 298 H Calcium Phosphorus Ferritin AST Lactate Dehydrogenase C-Reactive Protein Albumin 11/07/19 11/07/19 11/07/19 05:03 05:15 06:28 Hgb RDW Plt Count Lymph % (Auto) Lymph # Seg Neutrophils % D-Dimer ABG pH 7.321 L ABG pO2 59.4 L ABG HCO3 28.3 H ABG O2 Saturation 88.5 L ABG Base Excess ABG Hemoglobin 11.8 L Oxyhemoglobin 86.1 L Sodium 134 L Potassium Chloride 91.6 L Carbon Dioxide BUN 24 H Creatinine Glucose 305 H POC Glucose 271 H Calcium Phosphorus 5.50 H D Ferritin AST 56 H Lactate Dehydrogenase C-Reactive Protein Albumin 2.8 L 11/07/19 11/07/19 11/07/19 11:49 11:49 11:49 Hgb RDW Plt Count Lymph % (Auto) Lymph # Seg Neutrophils % D-Dimer > 03816 H ABG pH ABG pO2 ABG HCO3 ABG O2 Saturation ABG Base Excess ABG Hemoglobin Oxyhemoglobin Sodium Potassium Chloride Carbon Dioxide BUN Creatinine Glucose POC Glucose Calcium Phosphorus Ferritin > 2000.0 H AST Lactate Dehydrogenase 777 H C-Reactive Protein 54.20 H Albumin 11/07/19 11/07/19 11/08/19 11:55 17:57 00:12 Hgb RDW Plt Count Lymph % (Auto) Lymph # Seg Neutrophils % D-Dimer ABG pH ABG pO2 ABG HCO3 ABG O2 Saturation ABG Base Excess ABG Hemoglobin Oxyhemoglobin Sodium Potassium Chloride Carbon Dioxide BUN Creatinine Glucose POC Glucose 240 H 303 H 230 H Calcium Phosphorus Ferritin AST Lactate Dehydrogenase C-Reactive Protein Albumin 11/08/19 11/08/19 01:33 05:17 Hgb RDW Plt Count Lymph % (Auto) Lymph # Seg Neutrophils % D-Dimer ABG pH 7.236 L ABG pO2 71.2 L ABG HCO3 29.8 H ABG O2 Saturation 91.3 L ABG Base Excess ABG Hemoglobin 11.7 L Oxyhemoglobin 88.7 L Sodium Potassium Chloride Carbon Dioxide BUN Creatinine Glucose POC Glucose 297 H Calcium Phosphorus Ferritin AST Lactate Dehydrogenase C-Reactive Protein Albumin
[2019-11-08] MEDS: ZINC SULFATE 220 MG CAP PO SCH (09:35)
[2019-11-08] MEDS: HYDROXYCHLOROQUINE 200 MG TAB PO SCH (09:35)
[2019-11-08] MEDS: cefTRIAXone/NS 2 GM/100 ML 2 GM/100 ML BAG IV SCH (09:35)
[2019-11-08] MEDS ORDERED: FAMOTIDINE 20 MG TAB PO SCH (10:00)
[2019-11-08] MEDS ORDERED: INSULIN GLARGINE 100 UNITS/ML SUB-Q ONE (10:00)
[2019-11-08 10:33] LABS: Calcium 8.8 mg/dL (8.4-10.2)
[2019-11-08] MEDS ORDERED: SODIUM BICARB 8.4% 50 MEQ/50 ML SYRINGE IV ONE ×2 (11:21→21:56)
[2019-11-08] MEDS ORDERED: SODIUM POLYSTYRENE 15 GM/60 ML ORAL LIQD ONE (11:21)
--- NOTE | 2019-11-08 11:25 | Progress Note ---
Assessment and Plan Assessment and plan: Sepsis, possible coronavirus Start IV fluids, supportive care Status post Rocephin, azithromycin ER, hold further antibiotic Consult infectious disease, follow cultures To r/o COVID COVID screen was done, placed on droplet, contact precautions nasal swab was done. Result pending Acute resp failure On supplemental Oxygen now on high flow Oxygen Pulm following Bilateral pneumonia To r/o Covid 19 PUI Diarrhea Check stool for culture, C. difficile Ordered, Hypertension, now normotensive Continue to monitor Diabetes mellitus type 2 Check fingersticks, start sliding scale Hypokalemia Give k-dur Thrombocytopenia, monitor DVT prophylaxis Full code status 11/03/19 patient with bilateral pneumonia. to r/o COVID. Consulted pulm for worsening resp failure, on high flow Oxygen 11/04/19 Patient with bilat pneumonia, PUI to r/o Covid. Now on HFNC at 40 l/min 11/05/19 Patient still on HFNC at 40 l/min. Give potassium supplement. 11/06/19 he is still very ill, shortness of breath on, has acute resp failure on high flow oxygen . Covid test done. Result pending 11/07/19 Still on mechanical vent, AC mode--rate 25, FiO2 70%, peep 18, critically ill The high probability of a clinically significant, sudden or life threatening deterioration of the [resp ] system(s) required my full and direct attention, intervention and personal management. The aggregate critical care time was [32] minutes. This time is in addition to time spent performing reported procedures but includes the following: [x] Data Review and interpretation [x] Patient assessment and monitoring of vital signs [x] Documentation [x] Medication orders and management History Interval history: No new issues Hospitalist Physical - Constitutional Vitals: Temp Pulse Resp BP Pulse Ox 99.2 F 124 H 24 85/52 96 11/08/19 08:00 11/08/19 10:10 11/08/19 10:10 11/08/19 10:10 11/08/19 10:10 General appearance: Present: no acute distress, well-nourished - EENT Eyes: Present: PERRL, EOM intact ENT: hearing intact, clear oral mucosa, dentition normal - Neck Neck: Present: supple, normal ROM - Respiratory Respiratory effort: normal Respiratory: bilateral: CTA - Cardiovascular Rhythm: regular Heart Sounds: Present: S1 & S2. Absent: gallop, rub - Extremities Extremities: no ischemia, No edema, Full ROM - Abdominal General gastrointestinal: soft, non-tender, non-distended, normal bowel sounds - Integumentary Integumentary: Present: clear, warm, dry - Neurologic Neurologic: CNII-XII intact, moves all extremities Results - Labs CBC & Chem 7: 11/07/19 05:03 11/08/19 09:30 Labs: Laboratory Last Values WBC 9.3 K/mm3 (4.5-11.0) 11/07/19 05:03 RBC 3.86 M/mm3 (3.65-5.03) 11/07/19 05:03 Hgb 11.9 gm/dl (11.8-15.2) 11/07/19 05:03 Hct 35.7 % (35.5-45.6) 11/07/19 05:03 MCV 92 fl (84-94) 11/07/19 05:03 MCH 31 pg (28-32) 11/07/19 05:03 MCHC 33 % (32-34) 11/07/19 05:03 RDW 13.6 % (13.2-15.2) 11/07/19 05:03 Plt Count 220 K/mm3 (140-440) 11/07/19 05:03 Lymph % (Auto) 11.1 % (13.4-35.0) L 11/07/19 05:03 [place] % (Auto) 4.1 % (0.0-7.3) 11/07/19 05:03 Eos % (Auto) 0.6 % (0.0-4.3) 11/07/19 05:03 Baso % (Auto) 0.7 % (0.0-1.8) 11/07/19 05:03 Lymph # 1.0 K/mm3 (1.2-5.4) L 11/07/19 05:03 [place] # 0.4 K/mm3 (0.0-0.8) 11/07/19 05:03 Eos # 0.1 K/mm3 (0.0-0.4) 11/07/19 05:03 Baso # 0.1 K/mm3 (0.0-0.1) 11/07/19 05:03 Seg Neutrophils % 83.5 % (40.0-70.0) H 11/07/19 05:03 Seg Neutrophils # 7.7 K/mm3 (1.8-7.7) 11/07/19 05:03 PT 13.6 Sec. (12.2-14.9) 11/01/19 15:55 INR 1.03 (0.87-1.13) 11/01/19 15:55 APTT 24.2 Sec. (24.2-36.6) 11/01/19 15:55 D-Dimer > 18298 ng/mlDDU (0-234) H 11/07/19 11:49 ABG pH 7.236 pH Units (7.350-7.450) L 11/08/19 01:33 ABG pCO2 71.8 mm Hg 11/08/19 01:33 ABG pO2 71.2 mm Hg (80.0-90.0) L 11/08/19 01:33 ABG HCO3 29.8 mmol/L (20.0-26.0) H 11/08/19 01:33 ABG O2 Saturation 91.3 % (95.0-99.0) L 11/08/19 01:33 ABG O2 Content 14.7 (0.0-44) 11/08/19 01:33 ABG Base Excess 0.8 mmol/L (-2.0-3.0) 11/08/19 01:33 ABG Hemoglobin 11.7 gm/dl (14.0-18.0) L 11/08/19 01:33 ABG Carboxyhemoglobin 1.8 % (0.0-5.0) 11/08/19 01:33 ABG Methemoglobin 1.0 % (0.0-1.5) 11/08/19 01:33 Oxyhemoglobin 88.7 % (95.0-99.0) L 11/08/19 01:33 FiO2 90 % 11/08/19 01:33 Sodium 132 mmol/L (137-145) L 11/08/19 09:30 Potassium 7.1 mmol/L (3.6-5.0) H* D 11/08/19 09:30 Chloride 87.2 mmol/L (98-107) L 11/08/19 09:30 Carbon Dioxide 21 mmol/L (22-30) L 11/08/19 09:30 Anion Gap 31 mmol/L 11/08/19 09:30 BUN 61 mg/dL (9-20) H 11/08/19 09:30 Creatinine 2.8 mg/dL (0.8-1.5) H D 11/08/19 09:30 Estimated GFR 29 ml/min 11/08/19 09:30 BUN/Creatinine Ratio 22 % 11/08/19 09:30 Glucose 339 mg/dL (75-100) H 11/08/19 09:30 POC Glucose 297 (70-105) H 11/08/19 05:17 Calcium 8.8 mg/dL (8.4-10.2) 11/08/19 09:30 Phosphorus 5.50 mg/dL (2.5-4.5) H D 11/07/19 05:03 Magnesium 2.10 mg/dL (1.7-2.3) 11/07/19 05:03 Ferritin > 2000.0 ng/mL (13.0-400.0) H 11/07/19 11:49 Total Bilirubin 0.90 mg/dL (0.1-1.2) 11/07/19 05:03 AST 56 units/L (5-40) H 11/07/19 05:03 ALT 37 units/L (7-56) 11/07/19 05:03 Alkaline Phosphatase 91 units/L (35-129) 11/07/19 05:03 Lactate Dehydrogenase 777 units/L (91-180) H 11/07/19 11:49 Total Creatine Kinase 161 units/L (55-170) 11/01/19 15:55 CK-MB (CK-2) < 1.0 ng/mL (0.0-4.0) 11/01/19 15:55 CK-MB (CK-2) Rel Index 0.6 (0-4) 11/01/19 15:55 C-Reactive Protein 54.20 mg/dL (0.00-1.30) H 11/07/19 11:49 Total Protein 7.4 g/dL (6.3-8.2) 11/07/19 05:03 Albumin 2.8 g/dL (3.9-5) L 11/07/19 05:03 Albumin/Globulin Ratio 0.6 % 11/07/19 05:03 Lipase 28 units/L (13-60) 11/01/19 15:55 Procalcitonin 0.17 ng/mL (<0.15) 11/05/19 22:40 TSH 0.736 mlU/mL (0.270-4.200) 11/01/19 15:55 Free T4 1.18 ng/dL (0.76-1.46) 11/01/19 15:55 Urine Color Yellow (Yellow) 11/01/19 17:02 Urine Turbidity Clear (Clear) 11/01/19 17:02 Urine pH 5.0 (5.0-7.0) 11/01/19 17:02 Ur Specific [place] 1.027 (1.003-1.030) 11/01/19 17:02 Urine Protein 30 mg/dl mg/dL (Negative) 11/01/19 17:02 Urine Glucose (UA) >=500 mg/dL (Negative) 11/01/19 17:02 Urine Ketones 20 mg/dL (Negative) 11/01/19 17:02 Urine Blood Neg (Negative) 11/01/19 17:02 Urine Nitrite Neg (Negative) 11/01/19 17:02 Ur Reducing Substances Not Reportable 11/01/19 17:02 Urine Bilirubin Neg (Negative) 11/01/19 17:02 Urine Ictotest Not Reportable 11/01/19 17:02 Urine Urobilinogen < 2.0 mg/dL (<2.0) 11/01/19 17:02 Ur Leukocyte Esterase Neg (Negative) 11/01/19 17:02 Urine WBC (Auto) 1.0 /HPF (0.0-6.0) 11/01/19 17:02 Urine RBC (Auto) 3.0 /HPF (0.0-6.0) 11/01/19 17:02 Urine Mucus Few /HPF 11/01/19 17:02 Influenza A (Rapid) Negative (Negative) 11/01/19 17:23 Influenza B (Rapid) Negative (Negative) 11/01/19 17:23 Miscellaneous Test See scanned result 11/02/19 Unknown Microbiology: Microbiology 11/06/19 23:47 Tracheal Aspirate Sputum Culture - Preliminary Bansal/IV: Voiding Method Condom Catheter IV Catheter Type [Left Upper PICC Line arm] IV Catheter Type [Right INT / Saline Lock Forearm] IV Catheter Type [Left Hand] INT / Saline Lock Active Medications - Current Medications Current Medications: Generic Name Dose Route Start Last Admin Trade Name Freq PRN Reason Stop Dose Admin Acetaminophen 650 mg 11/02/19 00:25 11/05/19 17:55 Tylenol PO 650 mg Q4H PRN Administration Pain MILD(1-3)/Fever >100.5/CARDENAS Lipase/Protease/Amylase 1 each 11/07/19 08:52 Pancreaze 10,500 Unit FEEDTUBE PRN PRN For Clogged Feeding Tube Dextrose 0 ml 11/02/19 00:25 D50w (25gm) Syringe IV Q30MIN PRN Hypoglycemia Protocol Enoxaparin Sodium 40 mg 11/05/19 22:00 11/07/19 22:27 Enoxaparin SUB-Q 40 mg QDAY@2200 DUTCH Administration Famotidine 20 mg 11/08/19 10:00 11/08/19 09:35 Pepcid PO 20 mg BID DUTCH Administration Fentanyl 50 mcg 11/06/19 22:35 Sublimaze IV Q10MIN PRN ANALGESIA Hydrophilic Ointment 1 applic 11/06/19 22:35 Vaseline Lip Therapy TP Q2HR PRN Dry Lips Hydroxychloroquine Sulfate 200 mg 11/06/19 20:00 11/08/19 09:35 Plaquenil PO 11/15/19 19:59 200 mg TID DUTCH Administration Ceftriaxone Sodium 2 gm in 100 mls @ 200 mls/hr 11/03/19 11:00 11/08/19 09:35 Rocephin/Ns 2 Gm/100 Ml IV 11/09/19 10:29 200 mls/hr Q24HR DUTCH Administration Protocol Fentanyl Citrate 2,000 mcg in 100 mls @ 5.38 mls/hr 11/06/19 23:00 11/07/19 22:27 Fentanyl Drip Premix IV 2 mcg/kg/hr TITR DUTCH 10.759 mls/hr Administration Protocol 1 MCG/KG/HR Propofol 1,000 mg in 100 mls @ 3.228 mls/hr 11/06/19 23:00 11/08/19 04:30 Diprivan 10 Mg/Ml IV 30 mcg/kg/min TITR DUTCH 19.367 mls/hr Administration Protocol 5 MCG/KG/MIN Norepinephrine 4 mg in 250 mls @ 7.5 mls/hr 11/08/19 04:45 11/08/19 09:48 Levophed Drip 4 Mg/Ns 250 Ml IV 2 mcg/min TITR DUTCH 7.5 mls/hr Administration Protocol 2 MCG/MIN Insulin Glargine 20 units 11/08/19 22:00 Lantus SUB-Q QHS DUTCH Insulin Human Lispro 0 unit 11/07/19 06:00 11/08/19 06:13 Humalog SUB-Q 6 unit Q6HR DUTCH Administration Protocol Multi-Ingred Cream/Lotion/Oil/Oint 1 applic 11/06/19 22:35 Artificial Tears Ophth Oint OU Q4HR PRN Dry Eye(s) Ondansetron HCl 4 mg 11/02/19 00:25 Zofran IV Q8H PRN Nausea And Vomiting Simple Syrup 15 ml 11/07/19 08:52 Simple Syrup FEEDTUBE PRN PRN Hypoglycemia Simple Syrup 30 ml 11/07/19 08:52 Simple Syrup FEEDTUBE PRN PRN Hypoglycemia Sodium Bicarbonate 325 mg 11/07/19 08:52 Sodium Bicarbonate FEEDTUBE PRN PRN For Clogged Feeding Tube Sodium Chloride 10 ml 11/02/19 10:00 11/08/19 09:36 Sodium Chloride Flush Syringe 10 Ml IV 10 ml BID DUTCH Administration Sodium Chloride 10 ml 11/02/19 00:25 Sodium Chloride Flush Syringe 10 Ml IV PRN PRN LINE FLUSH Zinc Sulfate 220 mg 11/05/19 16:00 11/08/19 09:35 Zinc Sulfate PO 220 mg QDAY DUTCH Administration Nutrition/Malnutrition Assess - Dietary Evaluation Nutrition/Malnutrition Findings: Nutrition Notes Start: 11/07/19 08:50 Freq: Status: Active Protocol: Document 11/07/19 08:50 LM (Rec: 11/07/19 09:03 LM [id number]) Nutrition Notes Need for Assessment generated from: MD Order,dietetics professor,MST Initial or Follow up Assessment Current Diagnosis COPD,Diabetes,Hypertension, Respiratory Failure Other Pertinent Diagnosis suspected COVID-19, pneu Current Diet Nepro 1.8 at 35 ml/hr Labs/Tests Na 134 BG 305 Phos 5.5 K 5 Pertinent Medications Humalog Propofol at 3.228 ml/hr (85 kcal) Height 6 ft 1 in Weight 107.592 kg [place] Body Weight (kg) 83.63 BMI 31.3 Weight Status Obese Subjective/Other Information MD consult to evaluate nutritional intake and RN screen for MST. Pt on vent. RN called requesting TF order. Burn Absent Trauma Absent Difficulty In Swallowing Current % PO Negligible Minimum of two criteria No #1 Nutrition Diagnosis Inadequate oral intake Etiology Mechanical vent As Evidenced by Signs and Symptoms Pt unable to consume PO Is patient on ventilator? Yes Is Patient Ambulatory and/or Out of Bed No REE-([facility]-confined to bed) 2367.648 Kcal/Kg value to use for calculation 19 Approximate Energy Requirements Using 2044 kcal/Kg Calculation Used for Recommendations Kcal/kg Additional Notes Protein: 168g (>/=2g/kg using IBW 84kg) Fluid: 1 ml/kcal or per MD Nutrition Intervention Change Diet Order: Continue TF Nutrition Support: Nepro 1.8 at 50 ml/hr Flush 100 ml q4h for hyponatremia Flush 200 ml q4h once hyponatremia resolves Kcal 2,160 Protein (gm) 97 Fluid (mL) 872 Goal #1 TF tolerance Goal #2 Meet at least 75% of energy and protein needs via TF Anticipated Discharge Needs: unable to determine at this time. Follow-Up By: 11/09/19 Additional Comments F/U for TF tolerance
[2019-11-08] MEDS ORDERED: CALCIUM CHLORIDE 1,000 MG/10 ML SYRINGE IV ONE ×3 (11:34→21:56)
[2019-11-08] MEDS ORDERED: INSULIN LISPRO 100 UNIT/ML SUB-Q ONE (11:39)
[2019-11-08] MEDS ORDERED: SODIUM CHLORIDE 0.9% 500 ML 500 ML ONE (11:52)
[2019-11-08] MEDS ORDERED: SODIUM BICARBONATE 150 MEQ in WATER FOR INJECTION (PF) 1,000 ML IV ONE (12:00)
[2019-11-08] MEDS ORDERED: DOPamine/D5W 800 MG/250 ML 800 MG/250 ML BAG IV SCH (12:00)
[2019-11-08] MEDS ORDERED: VASOPRESSIN 20 UNIT in SODIUM CHLORIDE 0.9% 100 ML IV SCH (12:00)
[2019-11-08] MEDS ORDERED: EPINEPHrine 1:1000 8 MG in SODIUM CHLORIDE 0.9% 250ML 242 ML IV SCH (12:00)
--- NOTE | 2019-11-08 12:47 | Event Note ---
Date: 11/08/19 Called by nursing around 11:17 that patient was bradycardic and hypotensive. Lost pulse shortly there after. Code started. Patient recieved some where between 8-10 round of epi including the initiation of an epi drip. He was shocked several times and did regain pulse back briefly for about 3-5 minutes. We were never able to achieve a readable blood pressure. Patient loss pulse for the second time. Code was called at 11:55am. I spoke with brother post code. He was notified during the code of what was going on. CCT31 minutes.
[2019-11-08 12:57] VITALS: BP 231/10
--- NOTE | 2019-11-08 13:45 | Death Summary ---
Summary - Providers Date of service: 11/08/19 Consults: 11/02/19 00:25 Consult to Physician [CONS] Routine Comment: Consulting Provider: DAYTON RAMIREZ Physician Instructions: Reason For Exam: fever, fatigue 11/03/19 13:00 Consult to Physician [CONS] Routine Comment: Consulting Provider: DEZ FITZGERALD Physician Instructions: Reason For Exam: acute resp failure, on HFNC, r/o Covid 19 11/06/19 22:35 Consult to Dietitian/Nutrition [CONS] Routine Physician Instructions: Reason For Exam: Reason for Consult: Evaluate nutritional intake 11/07/19 09:56 PICC Line Insertion [Consult to PICC Line RN] [CONS] Urgent Reason For Exam: patient on Actemra drips Type Line:: PICC Attending: MANUELA SALOMON - summary Date of admission: 11/01/19 18:09 Date of : 11/08/19 - Final diagnosis (1) COVID-19 virus detected Note: Final diagnosis: (2) Pneumonia Note: Final diagnosis: (3) Diabetes Note: Final diagnosis: (4) Sepsis Note: Final diagnosis:
[2019-11-08] MEDS ORDERED: SODIUM CHLORIDE 0.9% 1000 ML IV SOLN ONE (18:19)
[2019-11-08] MEDS ORDERED: EPINEPHrine/PF (1:1,000) 1 MG/1 ML INJ ONE (21:56)
[2019-11-08] MEDS ORDERED: LIDOCAINE PF 100 MG/5 ML (CARDIAC SYRINGE) IV ONE (21:56)
[2019-11-08] MEDS ORDERED: EPINEPHrine 1:10,000 1 MG/10 ML SYRINGE ONE (21:56)
[2019-11-08] MEDS ORDERED: DEXTROSE 50% IN WATER (25GM) 50 ML VIAL IV ONE (21:56)
[2019-11-08] MEDS ORDERED: DOPamine/D5W 800 MG/250 ML DRIP IV ONE (21:56)
[2019-11-08] MEDS ORDERED: AMIODARONE 150 MG/3 ML INJ IV ONE (21:56)
[2019-11-08] MEDS ORDERED: INSULIN GLARGINE 100 UNITS/ML SUB-Q SCH (22:00)
[2019-11-10 07:23] LABS: HIV-1 Antibody Differentiation SEE SCANNED RESULT; HIV-2 Antibody Differentiation SEE SCANNED RESULT
== END 2019-11-08 14:55 | DRG 208 ==
LOC: ED 13:04 → 4A 18:09 → IMCU 20:35 → CC1 11-06 22:35
PROVIDERS: ADMIT Internal Medicine; ATTEND Hospitalist
PROC: 0BH17EZ Insertion of Endotracheal Airway into Trachea, Via Natural or Artificial Opening (ICD-10-PCS; principal; 2019-11-06)
PROC: 5A1945Z Respiratory Ventilation, 24-96 Consecutive Hours (ICD-10-PCS; 2019-11-06)
PROC: 02HV33Z Insertion of Infusion Device into Superior Vena Cava, Percutaneous Approach (ICD-10-PCS; 2019-11-06)
PROC: 4A033R1 Measurement of Arterial Saturation, Peripheral, Percutaneous Approach (ICD-10-PCS; 2019-11-06)
DX: U07.1 COVID-19 (principal); A41.9 Sepsis, unspecified organism; J96.01 Acute respiratory failure with hypoxia; J12.89 Other viral pneumonia; E86.0 Dehydration; I10 Essential (primary) hypertension; K21.9 Gastro-esophageal reflux disease without esophagitis; E87.6 Hypokalemia; E11.9 Type 2 diabetes mellitus without complications; D69.6 Thrombocytopenia, unspecified; Z79.4 Long term (current) use of insulin; Z79.899 Other long term (current) drug therapy
CPT/HCPCS: 36415; 36600; 71045; 74018; 80048; 80053; 81001; 82164; 82550; 82553; 82728; 82803; 82962; 83615; 83690; 83735; 84100; 84145; 84439; 84443; 85025; 85027; 85379; 85610; 85730; 86140; 86689; 87040; 87070; 87205; 87400; 93005; 93010; 94002; 94003; 94660; 94760; G0378; J0171; J0282; J0330; J0456; J0696; J1265; J1650; J1815; J1940; J2001; J2405; J2704; J3010; J7030; J7040; J7050